=== PATIENT | female | born 1990 | race Caucasian/White ===

== ENCOUNTER → 2016-08-27 | Outpatient (CLI) | payer OTHER ==
[~2016-08-27] MED LIST: ACET-1311 PO; CEPH500C2 PO; MTR600X PO; ONDA4TAB10 SL; OXYC-57 PO; PRENTAB26 PO; SULF800T23 PO
[2016-08-27 13:14] LABS: HEMATOCRIT 33.2 % (37-47)
[2016-08-27 14:42] LABS: GTGD 50 Grams
== END | disposition home or self-care (01) ==
LOC: C.LAB1850 11:53
PROVIDERS: ATTEND Obstetrics & Gynecology
DX: Z34.83 Encounter for supervision of other normal pregnancy, third trimester (principal)

== ENCOUNTER → 2016-08-27 | Outpatient (CLI) | payer OTHER ==
[2016-08-27 15:47] LABS: URINE APPEARANCE CLEAR (CLEAR); URINE BILIRUBIN NEG (NEG); URINE COLOR YELLOW; URINE EPITHELIAL CELL AUTO >30 /lpf (0-5); URINE NITRITE NEG (NEG); URINE PH 7.5 (4.5-7.5); URINE SPECIFIC GRAVITY 1.009 (1.000-1.030); UROBILINOGEN NEG (NEG)
[2016-08-27 15:49] LABS: REVIEW REQ? NO
[2016-08-27 15:50] LABS: MANUAL MICROSCOPIC REQUIRED? NO
== END | disposition home or self-care (01) ==
LOC: C.LABSPEC 14:38
PROVIDERS: ATTEND Obstetrics & Gynecology
DX: Z34.83 Encounter for supervision of other normal pregnancy, third trimester (principal)

== ENCOUNTER → 2016-10-28 | Outpatient (CLI) | payer OTHER | END | disposition home or self-care (01) | LOC: C.LABSPEC 13:29 | PROVIDERS: ATTEND Obstetrics & Gynecology | DX: Z34.83 Encounter for supervision of other normal pregnancy, third trimester (principal) ==

== ENCOUNTER 2016-11-07 20:20 | Outpatient (CLI) | payer OTHER ==
[~2016-11-07] VITALS: Ht 160 cm; Wt 96.2 kg
[~2016-11-07 20:20] MED LIST changes: -ACET-1311 PO; -CEPH500C2 PO; -MTR600X PO; -OXYC-57 PO; -SULF800T23 PO
[2016-11-07 20:58] VITALS: Ht 160 cm; Wt 96.2 kg
--- NOTE | 2016-11-07 21:31 | History & Physical Bridge Note ---
H&P Re-Evaluation Bridge Note: I have examined the patient, reviewed the History & Physical and in the interval since the performance of the History & Physical I have noted the following changes of clinical significance: No changes noted
[2016-11-16] MEDS ORDERED: ACET-1311 PO (10:34)
== END 2016-11-07 21:45 | disposition home or self-care (01) ==
LOC: C.OPB 20:20 → C.LD 20:20 → C.OPB 21:45
PROVIDERS: ATTEND Obstetrics & Gynecology
DX: O62.9 Abnormality of forces of labor, unspecified (principal); Z3A.37 37 weeks gestation of pregnancy

== ENCOUNTER 2016-11-22 05:37 | Inpatient (IN) | payer OTHER ==
--- NOTE | 2016-11-16 10:49 | PAT Medication Instructions ---
Service Date Nov 16, 2016. Current Home Medication List Acetaminophen (Tylenol), 325 MG PO PRN Multivit/Min/Iron/Fol Ac/Pren ( Vitamin), 1 TAB PO QAM Medication Instructions For Your Scheduled Surgery - Hold the following medications the morning of surgery: Multivit/Min/Iron/Fol Ac/Pren ( Vitamin), 1 TAB PO QAM - Take the following medications the morning of surgery with a sip of water OTHERWISE NOTHING TO EAT OR DRINK AFTER MIDNIGHT: Acetaminophen (Tylenol), 325 MG PO PRN (may take if needed up to 4 hours prior to surgery) If you have any questions please call us at [phone] or [phone] or [phone]
[2016-11-16 11:31] LABS: BASO % 0.1 %; BASO ABS # 0.01 K/uL (0-0.2); EOS % 0.9 %; HEMATOCRIT 32.1 % (37-47); IG% 0.5 %; LYMPH % 15.5 %; LYMPH ABS # 1.18 K/uL (1.2-3.4); MEAN CELL VOLUME 74.1 fL (80-100); MEAN CORPUSCULAR HEMOGLOBIN 23.1 pg (25-34); MEAN CORPUSCULAR HGB CONC 31.2 g/dl (32-36); MEAN PLATELET VOLUME 11.3 fL (7.4-10.4); MONO % 6.7 %; NEUT % 76.3 %; PLATELET COUNT 175 K/uL (130-400); RED BLOOD COUNT 4.33 M/uL (4.2-5.4)
[2016-11-16 11:35] LABS: URINE APPEARANCE CLEAR (CLEAR); URINE BILIRUBIN NEG (NEG); URINE COLOR YELLOW; URINE NITRITE NEG (NEG); URINE SPECIFIC GRAVITY 1.011 (1.000-1.030); UROBILINOGEN NEG (NEG)
[2016-11-16 11:38] LABS: MANUAL MICROSCOPIC REQUIRED? NO; REVIEW REQ? NO
[2016-11-16 14:23] LABS: COMPLETE YES; MICROCYTOSIS PRESENT
[2016-11-22] VITALS (13 sets, daily range): BP systolic 106–120; BP diastolic 59–72; PULSE 66–101; TEMP 36.4–37; O2SAT 96–100; Ht 160 cm; Wt 98.0 kg
[~2016-11-22] VITALS: Ht 160 cm; Wt 98.0 kg
[~2016-11-22 05:37] MED LIST changes: +ACET-1311 PO; -ONDA4TAB10 SL
[2016-11-22] MEDS ORDERED: LACTATED RINGER'S 1000ML 1,000 ML IV ONE (05:39)
[2016-11-22] MEDS ORDERED: CITRIC ACID/SODIUM CITRATE 15 ML UDC PO SCH (06:00)
[2016-11-22] MEDS ORDERED: CEFAZOLIN IV 2,000 MG in DEXTROSE 5% 50ML IV SCH (06:00)
[2016-11-22] MEDS ORDERED: LACTATED RINGER'S 1000ML 1,000 ML IV SCH ×2 (06:00→07:19)
[2016-11-22 06:35] LABS: HEMATOCRIT 33.5 % (37-47); MEAN CELL VOLUME 72.7 fL (80-100); MEAN CORPUSCULAR HEMOGLOBIN 22.6 pg (25-34); MEAN PLATELET VOLUME 10.6 fL (7.4-10.4); PLATELET COUNT 187 K/uL (130-400); RED BLOOD COUNT 4.61 M/uL (4.2-5.4); WHITE BLOOD COUNT 8.42 K/uL (4.8-10.8)
[2016-11-22 06:36] LABS: BASO % 0.2 %; BASO ABS # 0.02 K/uL (0-0.2); COMPLETE YES; EOS % 0.5 %; IG% 0.5 %; LYMPH % 21.3 %; LYMPH ABS # 1.79 K/uL (1.2-3.4); MONO % 9.4 %; NEUT % 68.1 %; OVALOCYTES 1+; TEAR DROP CELLS OCCASIONAL
[2016-11-22] MEDS ORDERED: MoRPHine SULFATE PF 1 MG/ML 10 ML AMP/VIAL ONE (06:59)
[2016-11-22] MEDS ORDERED: ATROPINE SULFATE 0.4 MG/ML 1 ML VIAL ONE (07:18)
[2016-11-22] MEDS ORDERED: OXYTOCIN INJ 30 UNITS in LACTATED RINGER'S 1000ML 1,000 ML IV SCH (07:19)
--- NOTE | 2016-11-22 07:27 | HISTORY & PHYSICAL EXAMINATION ---
DATE OF ADMISSION: 11/22/2016 PREOPERATIVE HISTORY AND PHYSICAL HISTORY OF PRESENT ILLNESS: This is a 26-year-old G3, P1-0-1-1 with a bernstein intrauterine at term and a history of a prior section. She presents for planned repeat . PAST MEDICAL HISTORY: Anxiety and depression without current medications, chickenpox vaccination and a history of ovarian cysts. PAST SURGICAL HISTORY: section in 2010 for failure to progress and wisdom teeth removal and eye surgery. OBSTETRIC HISTORY: 2016 - first trimester SAB; 2010 - 41 weeks primary section for an 8 pound 14 ounce female due to failure to progress. SOCIAL HISTORY: Negative x3, single female with a monogamous male partner. PHYSICAL EXAMINATION: VITAL SIGNS: Most recent weight 216 pounds, blood pressure 128/60. PELVIS: heart tones appropriate for gestational age and category 1 here on labor and delivery. TOCO is quiet. Cervical and vaginal exam most recently closed, long and high. GENERALLY: Alert and in no acute distress. HEART: Shows regular rate and rhythm. LUNGS: Clear to auscultation bilaterally. ABDOMEN: Gravid and nontender. EXTREMITIES: Without significant edema. ASSESSMENT AND PLAN: A 26-year-old 3, para 1-0-1-1 with a bernstein at term for repeat section. She declines trial of labor after section. Risks and benefits have been discussed with the patient. She is interested in proceeding and we will take her to surgery at this time. RINA
[2016-11-22] MEDS ORDERED: NALOXONE HCL INJ 1 MG in SODIUM CHLORIDE 0.9% 1000ML 1,000 ML IV PRN ×4 (07:28)
[2016-11-22] MEDS ORDERED: NALOXONE HCL INJ 0.08 MG in SYRINGE 1.8 ML IV PRN (07:28)
[2016-11-22] MEDS ORDERED: SODIUM CHLORIDE 0.9% 1000ML 1,000 ML IV PRN (07:28)
[2016-11-22] MEDS ORDERED: LACTATED RINGER'S 1000ML 500 ML IV PRN (07:28)
[2016-11-22] MEDS ORDERED: PHENYLEPHRINE 100MCG/ML 5ML SYR IV PRN (07:30)
[2016-11-22] MEDS ORDERED: MEPERIDINE HCL 25 MG/ML CARP IV PRN (07:30)
[2016-11-22] MEDS ORDERED: ATROPINE SULFATE 0.1 MG/ML 5ML SYR IV PRN (07:30)
[2016-11-22] MEDS ORDERED: NO NARCOTICS OR SEDATIVES SCH (07:30)
[2016-11-22] MEDS ORDERED: SUPERCREAM 0.870 % 15GM JAR EXT PRN (07:30)
[2016-11-22] MEDS ORDERED: ONDANSETRON INJ 2 MG/ML 2 ML VIAL IV PRN ×2 (07:30)
[2016-11-22] MEDS ORDERED: KETOROLAC TROMETHAMINE 30 MG/ML VIAL IV. PRN ×2 (07:30)
[2016-11-22] MEDS ORDERED: BENZOCAINE 20% AER SPR 82.5 GM CAN EXT PRN (07:30)
[2016-11-22] MEDS ORDERED: LANOLIN OINT EXT PRN ×2 (07:30)
[2016-11-22] MEDS ORDERED: EpHEDrine SULFATE INJ 50 MG/ML AMP IV PRN ×2 (07:30)
[2016-11-22] MEDS ORDERED: MoRPHine SULFATE PF 1 MG/ML 10 ML AMP/VIAL EPI PRN (07:30)
[2016-11-22] MEDS ORDERED: NALOXONE HCL 0.4 MG/1 ML VIAL/CARP IV PRN (07:30)
[2016-11-22] MEDS ORDERED: PROMETHAZINE HCL INJ 12.5 MG in SODIUM CHLORIDE 0.9% 50ML 50 ML IV PRN (07:30)
[2016-11-22] MEDS ORDERED: HYDROCORTISONE ACETATE 25 MG SUPP PR PRN (07:30)
[2016-11-22] MEDS ORDERED: PROMETHAZINE HCL INJ 25 MG in SODIUM CHLORIDE 0.9% 50ML 50 ML IV PRN (07:30)
[2016-11-22] MEDS ORDERED: DIPHTHERIA/TETANUS/PERTUSSIS 0.5 ML SYR/VIAL IM. ONE (07:30)
[2016-11-22] MEDS: DOCUSATE SODIUM 100 MG CAP PO SCH ×2 (08:00→20:13)
[2016-11-22] MEDS: PRENATAL VITAMIN TAB PO SCH (08:00)
[2016-11-22] MEDS ORDERED: PHENYLEPHRINE 100MCG/ML 5ML SYR ONE (08:25)
[2016-11-22] MEDS ORDERED: PROPOFOL IV EMULSION 10 MG/ML 20 ML VIAL IV ONE (08:25)
[2016-11-22] MEDS ORDERED: OXYTOCIN INJ 10 UNITS/ML VIAL ONE (08:25)
[2016-11-22] MEDS ORDERED: ONDANSETRON INJ 2 MG/ML 2 ML VIAL ONE (08:25)
[2016-11-22] MEDS ORDERED: EpHEDrine SULFATE 50MG/5ML SYR ONE (08:25)
[2016-11-22] MEDS ORDERED: METOCLOPRAMIDE HCL INJ 5 MG/ML 2 ML VIAL ONE (08:25)
--- NOTE | 2016-11-22 08:38 | [facility] Post Operative Brief Note ---
Immediate Operative Summary Operative Date November 22, 2016. Pre-Operative Diagnosis History of caesarean section. Declines . Post-Operative Diagnosis Same as above Procedure(s) Performed Repeat caesarean section. Delivery of live female child at 0802. Surgeon Dr. Johnson Ship Pilot Dispatcher Surgeon(s) Dr. Mcnulty Estimated Blood Loss 600cc Findings Delivered a viable female infant, APGARS 9,9. Weight 8 lbs 3.8oz. Normal uterus , fallopian tubes and ovaries bilaterally Specimens A: Placenta-hold Drains forbes to gravity Anesthesia spinal Complication(s) None Disposition L&D
--- NOTE | 2016-11-22 08:43 | [facility] Post Operative Brief Note ---
Immediate Operative Summary Operative Date November 22, 2016. Pre-Operative Diagnosis History of caesarean section. Declines . Post-Operative Diagnosis Same as above Procedure(s) Performed Repeat caesarean section. Delivery of live female child at 0802. Surgeon Dr. Johnson Language Translator Surgeon(s) Dr. Mcnulty Estimated Blood Loss 600cc Findings Normal tubes and ovaries. Infant in vertex presentation. Significant scar tissue in the subcutaneous layers and fascia. Specimens A: Placenta-hold Complication(s) None Disposition L&D
[2016-11-22] MEDS: SIMETHICONE 80 MG CHEW PO SCH ×4 (09:00→20:13)
--- NOTE | 2016-11-22 09:10 | OPERATIVE REPORT ---
DATE OF OPERATION: 11/22/2016 PREOPERATIVE DIAGNOSIS: History of and declines vaginal after section. POSTOPERATIVE DIAGNOSIS: Same. PROCEDURE: Repeat section with delivery of live female at 0802. SURGEON: Dr. Johnson. HORSE SHOW JUDGE: PGY1. ESTIMATED BLOOD LOSS: 600. FINDINGS: Normal tubes and ovaries. in vertex presentation. There was significant scar tissue encountered throughout the subcutaneous layers and fascia. SPECIMENS: Placenta for hold. COMPLICATIONS: None. DISPOSITION: Stable in labor and delivery. DESCRIPTION: Makayla is a 26-year-old G3, P1-0-1-1, who presented with a bernstein at term for a repeat section. She was placed on the table in the supine position with a leftward tilt, prepped and draped in standard sterile fashion, and a hard timeout was taken prior to proceeding. A Pfannenstiel incision was created through the prior scar and carried down through the subcutaneous layers. Significant scar tissue was encountered in the subcutaneous tissue and the fascia as well. Once the fascia was incised, it was elevated and sharply and bluntly dissected off the underlying rectus. The midline of the rectus needed to be dissected using sharp scissors with careful layer by layer dissection through significant scar tissue. Once the peritoneum was encountered, it was bluntly entered, and from that point, no further scarring or adhesions were encountered. The bladder blade was placed, a bladder flap was created, and the lower uterine segment was incised in a transverse manner with final entry being made in a blunt manner for clear amniotic fluid. The head was elevated to the hysterotomy, and with fundal pressure, an attempt was made to deliver the . Unfortunately, this was not initially successful and a Kiwi cup was then applied to the vertex. This was used with another attempt of fundal pressure to deliver the infant's head. The shoulders came out without any difficulty and the remainder of the followed. The cord was doubly clamped and cut, and the was then taken to the warmer for pediatric attention. The placenta was manually extracted. The uterus was exteriorized and cleared off all clot and debris using a damp lap sponge. The ovaries and tubes were seen to be normal bilaterally. The lower transverse incision was closed in the usual manner with 2 layers of 0 Vicryl suture in a running locked manner and an imbricating overlayer. Tone was good and the uterus was then reapproximated to the abdomen. On inspection, the hysterotomy was noted to have a small area of bleeding which was addressed using a [id number] Vicryl suture and hemostasis was thus achieved. The gutters were cleared off all clot and debris. The rectus were allowed to reapproximate naturally. Fascia was closed from each angle toward the center using #1 Vicryl suture in a running nonlocked manner. The subcutaneous tissue was copiously irrigated and reapproximated using 3-0 chromic. The skin was closed using 4-0 Monocryl in a running subcuticular manner and a Dermabond dressing was then applied. The patient was transferred in stable condition to the recovery room with the Brannon draining clear yellow urine. I attest to the content of the Intraoperative Record and any orders documented therein. Any exceptio ns are noted below.
[2016-11-22] MEDS: DiphenhydrAMINE HCL 50 MG/ML VIAL IV PRN ×2 (09:55→19:03)
--- NOTE | 2016-11-22 15:03 | Anesthesiology Progress Note ---
Anesthesia Post Op Note Date & Time November 22, 2016 at 15:04 Vital Signs Vital Signs Past 12 Hours Date Time Temp Pulse Resp B/P Pulse Ox O2 Delivery O2 Flow Rate FiO2 11/22/16 13:00 20 100 11/22/16 13:00 66 20 108/66 100 Room Air 11/22/16 11:00 99 Room Air 11/22/16 11:00 99 Room Air 11/22/16 11:00 36.4 86 24 106/68 99 Room Air 11/22/16 11:00 24 99 Notes Mental Status: alert / awake / arousable, participated in evaluation Pt Amnestic to Procedure: Yes Nausea / Vomiting: adequately controlled Pain: adequately controlled Airway Patency, RR, SpO2: stable & adequate BP & HR: stable & adequate Hydration State: stable & adequate Anesthetic Complications: no major complications apparent
[2016-11-22] MEDS: NALBUPHINE HCL INJ 10 MG/ML AMP IV PRN ×2 (15:27→22:16)
[2016-11-22] MEDS: MEPERIDINE HCL 25 MG/ML CARP IV PRN ×2 (16:24→16:48)
[2016-11-23] VITALS: O2SAT 98
[2016-11-23] MEDS ORDERED: DC INTRASPINAL MORPHINE SCH
[2016-11-23] MEDS ORDERED: PROMETHAZINE HCL INJ 25 MG in SODIUM CHLORIDE 0.9% 50ML 50 ML IV PRN (00:01)
[2016-11-23] MEDS ORDERED: DiphenhydrAMINE HCL 50 MG/ML VIAL IV PRN (00:01)
[2016-11-23] MEDS ORDERED: OXYCODONE/ACETAMINOPHEN 5-325 TAB PO PRN (00:01)
[2016-11-23] MEDS ORDERED: KETOROLAC TROMETHAMINE 30 MG/ML VIAL IV. PRN (00:01)
[2016-11-23] MEDS ORDERED: MEPERIDINE HCL 50 MG/ML CARP IV PRN ×2 (00:01)
[2016-11-23] MEDS ORDERED: ONDANSETRON INJ 2 MG/ML 2 ML VIAL IV PRN (00:01)
[2016-11-23 00:20] VITALS: BP 108/58; PULSE 80; TEMP 37; O2SAT 96; O2SAT 98
[2016-11-23 04:00] VITALS: BP 116/74; PULSE 103; TEMP 37
[2016-11-23 06:34] LABS: BASO % 0.3 %; BASO ABS # 0.02 K/uL (0-0.2); EOS % 0.6 %; IG% 0.4 %; LYMPH ABS # 1.28 K/uL (1.2-3.4); MEAN CELL VOLUME 73.3 fL (80-100); MEAN CORPUSCULAR HEMOGLOBIN 22.9 pg (25-34); MEAN CORPUSCULAR HGB CONC 31.2 g/dl (32-36); MEAN PLATELET VOLUME 10.7 fL (7.4-10.4); MONO % 7.4 %; NEUT % 75.3 %; PLATELET COUNT 133 K/uL (130-400); RED BLOOD COUNT 3.41 M/uL (4.2-5.4)
--- NOTE | 2016-11-23 06:36 | Progress Note ---
Subjective November 23, 2016. Subjective conversation w/ patient, physical exam, lab review Ambulation: ambulating normally Voiding: no voiding problems Passing Gas: Yes Diet Tolerance: Regular Diet Lochia: Moderate Pain: improves with meds Comment: Patient was seen at the bedside. No acute event overnight. Review of Systems Constitutional: No fever Respiratory: No cough, No shortness of breath Cardiac: No chest pain Breast: No breast lump Abdomen: No nausea, No pain, No vomiting Female : No dysuria, No urinary frequency Denies headache Objective Vital Signs Date Time Temp Pulse Resp B/P Pulse Ox O2 Delivery O2 Flow Rate FiO2 11/23/16 04:00 37.0 103 18 116/74 Room Air 11/23/16 00:20 96 Room Air 11/23/16 00:20 37.0 80 17 108/58 98 Room Air 11/23/16 00:00 18 98 11/22/16 23:00 18 98 11/22/16 22:00 18 98 11/22/16 21:00 18 96 11/22/16 20:15 37.0 101 18 120/72 96 Room Air 11/22/16 20:00 20 99 11/22/16 19:00 22 99 11/22/16 18:00 20 99 11/22/16 17:00 20 99 11/22/16 16:00 20 98 11/22/16 15:15 99 11/22/16 15:15 36.7 68 20 106/59 99 Room Air 11/22/16 14:00 20 98 11/22/16 13:00 20 100 11/22/16 13:00 66 20 108/66 100 Room Air 11/22/16 11:00 99 Room Air 11/22/16 11:00 99 Room Air 11/22/16 11:00 36.4 86 24 106/68 99 Room Air 11/22/16 11:00 24 99 Physical Exam General Appearance: WELL-APPEARING, WD/WN, NO APPARENT DISTRESS Respiratory/Chest: chest non-tender, lungs clear, normal breath sounds Cardiovascular: regular rate, rhythm Abdomen: normal bowel sounds, non tender, soft Fundus: Firm, Relation to Umbilicus (1 cm below) Incision Description: Clean, Dry & Intact Extremities: non-tender, no calf tenderness, + pedal edema (trace of edema on right leg) Laboratory Results Last 24 Hours Test 11/23/16 06:19 Medications Current Inpatient Medications Medications (Trade) Dose Ordered Sig/Ramone Route Start Time Stop Time Status Last Admin Dose Admin Lactated Ringer's (Lr 1000ml) 1,000 ml @ 125 mls/hr Q8H IV 11/22/16 07:19 12/22/16 07:18 11/22/16 19:00 125 MLS/HR Ketorolac Tromethamine (Toradol Inj) 30 mg Q6H PRN IV. 11/23/16 00:01 11/27/16 07:29 11/23/16 00:22 30 MG Meperidine HCl (Demerol Inj) 50 mg Q4H PRN IV 11/23/16 00:01 12/07/16 00:00 Meperidine HCl (Demerol Inj) 75 mg Q4H PRN IV 11/23/16 00:01 12/07/16 00:00 Oxycodone/ Acetaminophen (Percocet 5-325mg Tab) 1 tab Q4H PRN PO 11/23/16 00:01 12/07/16 00:00 Oxycodone/ Acetaminophen (Percocet 5-325mg Tab) 2 tab Q4H PRN PO 11/23/16 00:01 12/07/16 00:00 Ibuprofen 600 mg 600 mg Q4H PRN PO 11/22/16 07:30 12/22/16 07:29 Promethazine HCl/ Sodium Chloride (Phenergan Inj/ Nss 50ml) 51 ml @ 204 mls/hr Q4H PRN IV 11/23/16 00:01 12/23/16 00:00 Ondansetron HCl (Zofran Inj) 4 mg Q4H PRN IV 11/23/16 00:01 12/23/16 00:00 Prenat Multivit/ Parts Puller/Iron/Folic Ac ( Vitamin Tab) 1 tab DAILY PO 11/22/16 08:00 12/22/16 07:59 Docusate Sodium (coLACE CAP) 100 mg BID PO 11/22/16 08:00 12/22/16 07:59 11/22/16 20:13 100 MG Cocaine HCl (Supercream 0.870% Cr) BID PRN EXT 11/22/16 07:30 12/06/16 07:29 Lanolin (Lanolin Oint) PRN PRN EXT 11/22/16 07:30 12/22/16 07:29 Hydrocortisone Acetate (Anusol Hc Supp) 25 mg BID PRN MS 11/22/16 07:30 12/22/16 07:29 Benzocaine (Dermoplast Aero Spr) 1 appln PRN PRN EXT 11/22/16 07:30 12/22/16 07:29 Simethicone (Mylicon Chew Tab) 80 mg QID PO 11/22/16 09:00 12/22/16 08:59 11/22/16 20:13 80 MG Diphenhydramine HCl (Benadryl Cap) 25 mg QID PRN PO 11/23/16 00:01 12/23/16 00:00 Diphenhydramine HCl (Benadryl Inj) 25 mg QID PRN IV 11/23/16 00:01 12/23/16 00:00 11/23/16 02:06 25 MG Assessment and Plan Problem List Medical Problems: (1) Carpal Tunnel Syndrome Status: Chronic (2) Nausea, vomiting and diarrhea Status: Acute Post-Op Day#: 1 Continue Routine Care: A/P: This is a 26 y/o female, , s/p repeat . She is ambulating and clinically stable. Plan: - Vitals signs are reviewed and WNL (Tmax 37 ) - Last Hgb is 10.4 - Blood type B+, GBS neg, Rubella Immune - Routine care - Encourage ambulation, monitor and control pain with medication as needed , continue with regular diet as tolerated and monitor lochia - Stool softeners and sitz bath recommended - Encourage breast feeding and educate about breast feeding Resident Physician Supervision Note: I was present with Dr. Mcnulty during the history and exam. I discussed the case with the resident and agree with the findings and plan as documented in the note. Any exceptions or clarifications are listed here: Doing well. voiding, will ambul more today. pain meds po for pain control. incision looks good. routine care. Documented By: Arleen Sanchez
[2016-11-23 07:21] LABS: COMPLETE YES; POIKILOCYTOSIS PRESENT
[2016-11-23] MEDS: PRENATAL VITAMIN TAB PO SCH (08:41)
[2016-11-23] MEDS: DOCUSATE SODIUM 100 MG CAP PO SCH ×2 (08:41→19:43)
[2016-11-23] MEDS: IBUPROFEN 600 MG TAB PO PRN ×3 (08:41→19:43)
[2016-11-23] MEDS: SIMETHICONE 80 MG CHEW PO SCH ×4 (08:41→19:43)
[2016-11-23] MEDS: OXYCODONE/ACETAMINOPHEN 5-325 TAB PO PRN ×3 (08:42→21:36)
[2016-11-23 08:44] VITALS: BP 118/70; PULSE 101; TEMP 36.9; O2SAT 100
--- NOTE | 2016-11-23 09:55 | Anesthesiology Progress Note ---
Anesthesia Post Op Note Date & Time November 23, 2016 at 09:55 Vital Signs Pain Intensity: 5.0 Vital Signs Past 12 Hours Date Time Temp Pulse Resp B/P Pulse Ox O2 Delivery O2 Flow Rate FiO2 11/23/16 04:00 37.0 103 18 116/74 Room Air 11/23/16 00:20 96 Room Air 11/23/16 00:20 37.0 80 17 108/58 98 Room Air 11/23/16 00:00 18 98 11/22/16 23:00 18 98 11/22/16 22:00 18 98 Notes Mental Status: alert / awake / arousable, participated in evaluation Pt Amnestic to Procedure: Yes Nausea / Vomiting: adequately controlled Pain: adequately controlled Airway Patency, RR, SpO2: stable & adequate BP & HR: stable & adequate Hydration State: stable & adequate Neuraxial Anesthesia: sensory block resolved Anesthetic Complications: no major complications apparent
[2016-11-23 15:05] VITALS: BP 118/75; PULSE 84; TEMP 37.3; O2SAT 99
[2016-11-23 23:40] VITALS: BP 115/69; PULSE 75; TEMP 36.8; O2SAT 99
[2016-11-24] MEDS: IBUPROFEN 600 MG TAB PO PRN (02:49)
[2016-11-24] MEDS: OXYCODONE/ACETAMINOPHEN 5-325 TAB PO PRN (02:50)
--- NOTE | 2016-11-24 07:17 | Discharge Instructions ---
Discharge Instructions Date of Service November 23, 2016. Admission Reason for Admission: Previous Section Discharge Discharge Diagnosis / Problem: s/p Discharge Goals Goal(s): Routine recovery after Medications Continue Dispensed Medications: supercream, dermaplast, tucks, lansinoh Activity Recommendations Activity Limitations: as noted below . Instructions / Follow-Up Instructions / Follow-Up ACTIVITY RECOMMENDATIONS: * Gradual return to full activity over the next 2-3 weeks. * No lifting - nothing heavier than baby over the next 2-3 weeks. * Do not engage in vigorous exercise, sexual activity or sports until cleared by your physician. * Do not drive or operate any motorized equipment until cleared by your physician. * You may shower/bathe daily. MEDICATIONS: For discomfort or pain, you may use Acetaminophen (Tylenol), Ibuprofen (Advil), or Naproxen (Aleve) following the package directions. For constipation you may use Colace following the package directions. BREAST CARE: If you are not breast feeding: * Wear a supportive bra 24 hours a day for one to two weeks. * Avoid stimulating your breasts and nipples as much as possible during the first few weeks after delivery. * When taking a shower, have the warm water hit your back, not breasts. * When your breasts feel full, apply ice packs. Usually three to four times a day helps ease the discomfort. * Take a mild pain medication (Tylenol / Motrin) when you are uncomfortable. If breast feeding: * Use breast milk to lubricate nipples. Lansinoh cream may be used for sore nipples. You do not need to remove cream prior to breast feeding. If using a different brand of cream, check the label for directions regarding removal of cream prior to nursing. * Wear a supportive bra. * If having problems with breasts or breast feeding, call a method consultant or your health care provider. SPECIAL CARE INSTRUCTIONS: When you are discharged from the hospital, it is important for you to follow the instructions listed below: * During the first week at home, you should be able to care for yourself and your baby. In addition, the usual light household activities are encouraged. * Limit your activities to the way you feel. Do not try to clean the house or move furniture. Be sensible. * If you actively engage in sports and have done so up until the time of your delivery, you may resume these activities as soon as you feel able. This may take up to one month or even longer. Use good judgment. * Continue to take your vitamins for at least six weeks after the of your baby. * Your diet need not be limited unless you were on a special diet before your delivery. Breast-feeding mothers need around 2500 calories per day and at least 64-80 ounces of fluid per day (8 to 10 glasses). * You should eat foods from the four major food groups. Crash diets or fad diets are to be avoided. Eating lean meats, fresh fruits and vegetables, low-fat dairy products, high fiber foods and a regular exercise program, will help you get back to your pre- weight without putting your health at risk. * Constipation is sometimes a problem after delivery. Take a mild laxative as needed. If breast feeding, Milk of Magnesia is acceptable to use. You may use a suppository or Fleets enema. * A daily shower or tub bath is suggested. Wash incision daily with warm soapy water and pat dry. It doesn't need to be covered unless drainage is present. * A bloody vaginal discharge will usually continue until around four weeks . A small amount of bleeding may continue for as long as six weeks. Vaginal discharge changes from the bright red bleeding after delivery to pink then brownish and finally yellowish-pink before becoming white and disappearing. * Bleeding may increase with activity. Your first period may come in 4-8 weeks. If you are breast feeding, your period may be delayed even longer. * [place] (sex) can begin whenever both you and your partner feel comfortable and do not have any form of genital infection. It is recommended that you wait at least six weeks for internal and external healing to occur. If you have questions, please talk to your health care practitioner. A condom should be used to prevent infection and . * Foreplay, gentle intercourse and lubrication is very important the first several times to prevent pain. A water-based lubricant such as K-Y jelly or Astroglide may be used. * If you have RH negative blood and your baby is RH positive, you will receive RHOGAM by injection prior to discharge. The nurse will give you a card to keep with you that has the date and place that you received RHOGAM after delivery. * During your care, you had a Rubella screen done to check for the presence of rubella antibodies in your blood. If your test was negative, you will receive a Rubella vaccine prior to discharge. This vaccine may cause a fever, soreness at the injection site and flu-like symptoms. If these symptoms persist, notify your health care practitioner. is not advised for one month after a Rubella vaccine. * Verbalizes understanding of car seat law as reviewed with patient nursing. * Car Seat hand-out given and reviewed with patient by nursing. * Shaken baby information reviewed with patient by nursing. Call you doctor if: * Heavy bleeding (saturating several pads an hour) or passing clots the size of your fist. * A fever >101 degrees F (38.3 degrees C) on two occasions four hours apart and /or chills. * Unusual pain in the pelvic or vaginal areas. * Call the doctor for any increased redness, drainage or swelling around the incision and any pain unrelieved by prescribed pain medication. * "Baby Blues" lasting longer than two weeks. If you have any questions or concerns, call your health care practitioner at . FOLLOW UP VISIT: * Please call the office at to schedule a 6 week examination. It is important you keep this appointment. It is important for you to make arrangements for either yearly or twice yearly check-ups thereafter. Current Hospital Diet Patient's current hospital diet: Regular OB Diet Discharge Diet Recommended Diet: Regular Diet Procedures Procedures Performed: Repeat caesarean section. Delivery of live female child at 0802. Pending Studies Studies pending at discharge: no Medical Emergencies . Who to Call and When: Medical Emergencies: If at any time you feel your situation is an emergency, please call 911 immediately. . Non-Emergent Contact Non-Emergency issues call your: Vascular Manager Call Non-Emergent contact if: you have a fever, temperature is above 101 . . "Provider Documentation" section prepared by Jayy Mcnulty. . VTE Core Measure Inpt VTE Proph given/why not?: Treatment not indicated
--- NOTE | 2016-11-24 07:19 | Progress Note ---
Subjective November 24, 2016. Subjective conversation w/ patient, physical exam, lab review Ambulation: ambulating normally Voiding: no voiding problems Passing Gas: Yes Diet Tolerance: Regular Diet Lochia: Small Feeding Type: Breast Feeding Pain: denies pain, improves with med Comment: Patient was seen at the bedside. No acute event overnight. Review of Systems Constitutional: No fever Respiratory: No shortness of breath Cardiac: No chest pain Breast: No breast lump Abdomen: No nausea, No pain, No vomiting Female : No dysuria, No urinary frequency Denies headache Objective Vital Signs Date Time Temp Pulse Resp B/P Pulse Ox O2 Delivery O2 Flow Rate FiO2 11/23/16 23:40 36.8 75 18 115/69 Room Air 11/23/16 23:40 99 Room Air 11/23/16 15:05 99 Room Air 11/23/16 15:05 37.3 84 18 118/75 99 Room Air 11/23/16 08:44 36.9 101 18 118/70 100 Room Air 11/23/16 08:44 100 Room Air Physical Exam General Appearance: WELL-APPEARING, WD/WN, NO APPARENT DISTRESS Respiratory/Chest: chest non-tender, lungs clear, normal breath sounds, no respiratory distress Cardiovascular: regular rate, rhythm Abdomen: normal bowel sounds, non tender, soft Fundus: Firm, Relation to Umbilicus (1-2cm below) Incision Description: Clean, Dry & Intact Extremities: non-tender, no pedal edema, no calf tenderness Medications Current Inpatient Medications Medications (Trade) Dose Ordered Sig/Ramone Route Start Time Stop Time Status Last Admin Dose Admin Lactated Ringer's (Lr 1000ml) 1,000 ml @ 125 mls/hr Q8H IV 11/22/16 07:19 12/22/16 07:18 11/22/16 19:00 125 MLS/HR Ketorolac Tromethamine (Toradol Inj) 30 mg Q6H PRN IV. 11/23/16 00:01 11/27/16 07:29 11/23/16 00:22 30 MG Meperidine HCl (Demerol Inj) 50 mg Q4H PRN IV 11/23/16 00:01 12/07/16 00:00 Meperidine HCl (Demerol Inj) 75 mg Q4H PRN IV 11/23/16 00:01 12/07/16 00:00 Oxycodone/ Acetaminophen (Percocet 5-325mg Tab) 1 tab Q4H PRN PO 11/23/16 00:01 12/07/16 00:00 11/24/16 02:50 1 TAB Oxycodone/ Acetaminophen (Percocet 5-325mg Tab) 2 tab Q4H PRN PO 11/23/16 00:01 12/07/16 00:00 Ibuprofen 600 mg 600 mg Q4H PRN PO 11/22/16 07:30 12/22/16 07:29 11/24/16 02:49 600 MG Promethazine HCl/ Sodium Chloride (Phenergan Inj/ Nss 50ml) 51 ml @ 204 mls/hr Q4H PRN IV 11/23/16 00:01 12/23/16 00:00 Ondansetron HCl (Zofran Inj) 4 mg Q4H PRN IV 11/23/16 00:01 12/23/16 00:00 Prenat Multivit/ Eland/Iron/Folic Ac ( Vitamin Tab) 1 tab DAILY PO 11/22/16 08:00 12/22/16 07:59 11/23/16 08:41 1 TAB Docusate Sodium (coLACE CAP) 100 mg BID PO 11/22/16 08:00 12/22/16 07:59 11/23/16 19:43 100 MG Cocaine HCl (Supercream 0.870% Cr) BID PRN EXT 11/22/16 07:30 12/06/16 07:29 Lanolin (Lanolin Oint) PRN PRN EXT 11/22/16 07:30 12/22/16 07:29 Hydrocortisone Acetate (Anusol Hc Supp) 25 mg BID PRN LA 11/22/16 07:30 12/22/16 07:29 Benzocaine (Dermoplast Aero Spr) 1 appln PRN PRN EXT 11/22/16 07:30 12/22/16 07:29 Simethicone (Mylicon Chew Tab) 80 mg QID PO 11/22/16 09:00 12/22/16 08:59 11/23/16 19:43 80 MG Diphenhydramine HCl (Benadryl Cap) 25 mg QID PRN PO 11/23/16 00:01 12/23/16 00:00 Diphenhydramine HCl (Benadryl Inj) 25 mg QID PRN IV 11/23/16 00:01 12/23/16 00:00 11/23/16 02:06 25 MG Assessment and Plan Problem List Medical Problems: (1) Carpal Tunnel Syndrome Status: Chronic (2) Nausea, vomiting and diarrhea Status: Acute Post-Op Day#: 2 Continue Routine Care: Resident Physician Supervision Note: I interviewed and examined the patient. Discussed with Dr. Mcnulty and agree with findings and plan as documented in the note. Any exceptions or clarifications are listed here: [None] Documented By: Lenora Jaimes A/P: This is a 26 y/o female, , s/p . She is ambulating and clinically stable to discharge. - Vital signs are reviewed and WNL (Tmax 37.3 ) - Last Hgb 7.8 - Blood type B+, GBS neg, Rubella Immune - No signs of depression. - Routine care - Discussed resting, feeding, pain control, mastitis, control, follow up in 6 weeks and reasons to call sooner, if necessary. - Continue with pain medication as needed, and continue vitamins. - Encourage breast feeding and educate about breast feeding - Patient understands and keen for home. - Plan to discharge home
[2016-11-24 08:00] VITALS: BP 120/67; PULSE 84; TEMP 36.9; O2SAT 95
[2016-11-24] MEDS ORDERED: MTR600X PO (08:13)
[2016-11-24] MEDS ORDERED: OXYC-57 PO (08:13)
[2016-11-24] MEDS: SIMETHICONE 80 MG CHEW PO SCH (08:37)
[2016-11-24] MEDS: PRENATAL VITAMIN TAB PO SCH (08:37)
[2016-11-24] MEDS: DOCUSATE SODIUM 100 MG CAP PO SCH (08:37)
[2016-11-24 09:50] VITALS: BP_DIAS 67; PULSE 84; TEMP 36.9
--- NOTE | 2016-11-26 14:07 | DISCHARGE SUMMARY ---
COURSE OF CARE: Makayla is a 26-year-old G3, P1 with history of prior section who presented for planned repeat. Her repeat low transverse section was uncomplicated. Please see operative report for details. Her postoperative course was notable for a hemoglobin and nadired at 7.8 from a preop of 10. The patient's vital signs however remained stable and within normal limits. The patient tolerated her blood losses well. Her postop care was smooth and then discharge was accomplished on the morning of 11/24/2016 with medications including 30 tablets of Percocet which were provided to her upon discharge.
== END 2016-11-24 09:50 | disposition home or self-care (01) | DRG 766 ==
LOC: C.LD 05:37 → EDSTATUS 07:30 → C.OBG 11:07
PROVIDERS: ADMIT Obstetrics & Gynecology; ATTEND Obstetrics & Gynecology
PROC: 10D00Z1 Extraction of Products of Conception, Low, Open Approach (ICD-10-PCS; principal; 2016-11-22 07:30)
DX: O34.211 Maternal care for low transverse scar from previous cesarean delivery (principal); N85.8 Other specified noninflammatory disorders of uterus; O99.62 Diseases of the digestive system complicating childbirth; K21.9 Gastro-esophageal reflux disease without esophagitis; O99.214 Obesity complicating childbirth; E66.9 Obesity, unspecified; Z68.38 Body mass index [BMI] 38.0-38.9, adult; Z79.899 Other long term (current) drug therapy; Z37.0 Single live birth; Z3A.39 39 weeks gestation of pregnancy

== ENCOUNTER 2016-12-30 16:28 | Emergency (ER) | payer OTHER ==
[~2016-12-30] VITALS: Ht 167.6 cm; Wt 84.5 kg
[~2016-12-30 16:28] MED LIST changes: -CEPH500C2 PO; -SULF800T23 PO
[2016-12-30 16:31] VITALS: TEMP 36.7; Ht 167.6 cm; Wt 84.5 kg
[2016-12-30] MEDS ORDERED: SODIUM CHLORIDE 0.9% 1000ML 1,000 ML IV STA (17:16)
[2016-12-30] MEDS ORDERED: METOCLOPRAMIDE HCL INJ 5 MG/ML 2 ML VIAL IV STA (17:16)
[2016-12-30 17:23] LABS: BASO % 0.4 %; BASO ABS # 0.02 K/uL (0-0.2); EOS % 1.4 %; HEMATOCRIT 34.8 % (37-47); LYMPH % 25.5 %; LYMPH ABS # 1.41 K/uL (1.2-3.4); MEAN CELL VOLUME 73.1 fL (80-100); MEAN CORPUSCULAR HEMOGLOBIN 22.3 pg (25-34); MEAN CORPUSCULAR HGB CONC 30.5 g/dl (32-36); MEAN PLATELET VOLUME 11.2 fL (7.4-10.4); MONO % 5.4 %; NEUT % 67.3 %; PLATELET COUNT 201 K/uL (130-400); RED BLOOD COUNT 4.76 M/uL (4.2-5.4); WHITE BLOOD COUNT 5.54 K/uL (4.8-10.8)
[2016-12-30] MEDS ORDERED: OPTIRAY 320 IV PRN (17:30)
[2016-12-30 17:32] LABS: URINE APPEARANCE CLEAR (CLEAR); URINE BILIRUBIN NEG (NEG); URINE COLOR YELLOW; URINE NITRITE NEG (NEG); URINE SPECIFIC GRAVITY 1.019 (1.000-1.030); UROBILINOGEN NEG (NEG)
[2016-12-30 17:33] LABS: BUN/CREATININE RATIO 12.3 (10-20); CALCIUM 8.9 mg/dl (8.5-10.1); CREATININE 0.8 mg/dl (0.60-1.20); POTASSIUM 3.9 mmol/L (3.5-5.1)
[2016-12-30 17:46] LABS: MANUAL MICROSCOPIC REQUIRED? NO; REVIEW REQ? NO
[2016-12-30 17:54] LABS: ISTAT CREATININE 0.9 mg/dl (0.6-1.3); ISTAT HEMOGLOBIN 10.2 g/dl (12.0-16.0); ISTAT IONIZED CALCIUM 1.16 mmol/l (1.12-1.32)
--- NOTE | 2016-12-30 18:37 | DIAGNOSTIC IMAGING REPORT ---
ABDOMEN AND PELVIS CT WITH IV CONTRAST CT DOSE: 696.99 mGy.cm HISTORY: Pain Pt c/o LLQ abd pain TECHNIQUE: Multiaxial CT images of the abdomen and pelvis were performed following the use of intravenous contrast. COMPARISON STUDY: 01/14/2015 FINDINGS: Lung bases are clear. Liver spleen and pancreas are uniform. Kidneys are negative for mass or hydronephrosis. Bowel pattern is considered nonobstructive. Perirectal fascial planes are intact. Uterus is anteflexed. There is slight fullness of the left rectus musculature compared to the right. Mild infiltrative changes subcutaneous fat anterior to the left and 2 masses extent right pelvic anterior anterior abdominal wall regions. IMPRESSION: 1. No acute process of the abdomen or pelvis. 2. Mild infiltrative changes subcutaneous fat anterior to the left anterior pelvic wall with similar but less prominent findings seen on the right. 3. This is suggestive of a nonspecific cellulitis. 4. No evidence for drainable abscess or collection. 5. Slight fullness left rectus musculature possibly indicative of a small hematoma and/or contusion. Electronically signed by: Castillo Chauhan M.D. 12/30/2016 6:36 PM Dictated Date/Time: 12/30/2016 6:29 PM
[2016-12-30] MEDS ORDERED: CEFTRIAXONE SOD INJ 1 GM ADDVIAL IV STA (18:40)
[2016-12-30] MEDS ORDERED: SULFAMETHOXAZOLE/TRIMETHOPRIM DS 800/160MG TAB PO STA (18:40)
[2016-12-30] MEDS ORDERED: SULF800T23 PO (18:47)
[2016-12-30] MEDS ORDERED: CEPH500C2 PO (18:47)
[2016-12-30 19:33] LABS: COMPLETE YES; MICROCYTOSIS PRESENT
[2016-12-30 19:37] VITALS: BP 107/58; PULSE 65; O2SAT 98
--- NOTE | 2016-12-30 20:54 | EMERGENCY ROOM VISIT NOTE ---
History Report prepared by Chencho: Mine Mendenhall Under the Supervision of: Dr. Jung Doan M.D. First contact with patient: 17:02 Chief Complaint: ABDOMINAL PAIN Stated Complaint: LEFT LOWER PAIN IN STOMACH Nursing Triage Summary: triage note: pt reports left lower abd pain x 3 days. "i have had dizzy episodes for 3 days too." pt reports on november 22, 2016 - pt denies any complications from . History of Present Illness The patient is a 26 year old female who presents to the Emergency Room with complaints of worsening left abdominal pain starting 3 days ago. The pain is constant and worsens with movement and coughing. The pain has slowly worsened since it started. She notes she has been having dizzy spells for the past couple of days. She denies any vomiting. She is having normal bowel movements. She had a C section 1 month ago. The scars seem to be healing well. She has a history of appendectomy. She still has her gallbladder. Source of History: patient Onset: 3 days ago Position: abdomen (left) Quality: other (pain) Timing: constant, worsening Modifying Factors (Worsening): movement, other (coughing) Associated Symptoms: No vomiting Note: Pt reports dizzy spells. Review of Systems See HPI for pertinent positives & negatives. A total of 10 systems reviewed and were otherwise negative. Past Medical & Surgical Medical Problems: (1) Abdominal pain (2) Abdominal pain (3) Abdominal pain (4) Abdominal pain (5) Carpal Tunnel Syndrome (6) Cellulitis (7) Dehydration (8) Eustachian tube dysfunction (9) Metrorrhagia (10) depression (11) Right upper quadrant abdominal pain (12) Uterine contractions at greater than 20 weeks of gestation (13) Vaginal bleeding in (14) Vaginitis (15) Vasovagal syncope (16) Viral bronchitis Surgical Problems: (1) History of appendectomy (2) History of delivery (3) History of section Family History Alcoholism FH: HTN (hypertension) FH: cancer Social History Smoking Status: Never Smoker Alcohol Use: none Drug Use: none Housing Status: lives with family Occupation Status: employed Current/Historical Medications Scheduled Cephalexin Monohydrate (Keflex), 500 MG PO QID Sulfa/Trimethoprim (Bactrim Ds 800MG/160MG), 1 TAB PO BID Allergies Coded Allergies: No Known Allergies (Unverified , 12/30/16) Physical Exam Vital Signs Date Time Temp Pulse Resp B/P (MAP) Pulse Ox O2 Delivery O2 Flow Rate FiO2 12/30/16 19:37 65 16 107/58 98 12/30/16 18:35 62 16 104/55 98 Room Air 12/30/16 17:37 72 12/30/16 16:55 90 18 113/59 100 Room Air 12/30/16 16:31 36.7 84 18 112/78 99 Room Air Physical Exam GENERAL: Patient is a healthy-appearing well-nourished HEAD: Normocephalic atraumatic EYES: Ocular movements intact pupils equal and react to light OROPHARYNX mucous membranes are moist no exudates present no erythema or edema present NECK: Supple no nuchal rigidity CHEST: Good equal expansion LUNGS: Clear and equal to auscultation CARDIAC: Normal S1 and S2 ABDOMEN: Soft no guarding mildly tender to LLQ surgical incision appears to be healing well no evidence of cellulitis to skin areas. BACK: No CVA tenderness EXTREMITIES: No pain upon palpation normal muscle strength in all groups no clubbing cyanosis or edema NEURO: Patient is following commands is answering questions appropriately. Alert and oriented x3 Cranial Nerves 2-12 grossly intact Medical Decision & Procedures ER Provider Diagnostic Interpretation: Radiology results as stated below per my review and radiologist interpretation: ABDOMEN AND PELVIS CT WITH IV CONTRAST CT DOSE: 696.99 mGy.cm HISTORY: Pain Pt c/o LLQ abd pain TECHNIQUE: Multiaxial CT images of the abdomen and pelvis were performed following the use of intravenous contrast. COMPARISON STUDY: 01/14/2015 FINDINGS: Lung bases are clear. Liver spleen and pancreas are uniform. Kidneys are negative for mass or hydronephrosis. Bowel pattern is considered nonobstructive. Perirectal fascial planes are intact. Uterus is anteflexed. There is slight fullness of the left rectus musculature compared to the right. Mild infiltrative changes subcutaneous fat anterior to the left and 2 masses extent right pelvic anterior anterior abdominal wall regions. IMPRESSION: 1. No acute process of the abdomen or pelvis. 2. Mild infiltrative changes subcutaneous fat anterior to the left anterior pelvic wall with similar but less prominent findings seen on the right. 3. This is suggestive of a nonspecific cellulitis. 4. No evidence for drainable abscess or collection. 5. Slight fullness left rectus musculature possibly indicative of a small hematoma and/or contusion. Electronically signed by: Castillo Chauhan M.D. 12/30/2016 6:36 PM Dictated Date/Time: 12/30/2016 6:29 PM Laboratory Results 12/30/16 16:55 Red Blood Count 4.76, Mean Corpuscular Volume 73.1, Mean Corpuscular Hemoglobin 22.3, Mean Corpuscular Hemoglobin Concent 30.5, Mean Platelet Volume 11.2, Neutrophils (%) (Auto) 67.3, Lymphocytes (%) (Auto) 25.5, Monocytes (%) (Auto) 5.4, Eosinophils (%) (Auto) 1.4, Basophils (%) (Auto) 0.4, Neutrophils # (Auto) 3.73, Lymphocytes # (Auto) 1.41, Monocytes # (Auto) 0.30, Eosinophils # (Auto) 0.08, Basophils # (Auto) 0.02 12/30/16 16:55 Test 12/30/16 16:55 12/30/16 17:39 White Blood Count 5.54 K/uL (4.8-10.8) Red Blood Count 4.76 M/uL (4.2-5.4) Hemoglobin 10.6 g/dL (12.0-16.0) Hematocrit 34.8 % (37-47) Mean Corpuscular Volume 73.1 fL (80-100) Mean Corpuscular Hemoglobin 22.3 pg (25-34) Mean Corpuscular Hemoglobin Concent 30.5 g/dl (32-36) Platelet Count 201 K/uL (130-400) Mean Platelet Volume 11.2 fL (7.4-10.4) Neutrophils (%) (Auto) 67.3 % Lymphocytes (%) (Auto) 25.5 % Monocytes (%) (Auto) 5.4 % Eosinophils (%) (Auto) 1.4 % Basophils (%) (Auto) 0.4 % Neutrophils # (Auto) 3.73 K/uL (1.4-6.5) Lymphocytes # (Auto) 1.41 K/uL (1.2-3.4) Monocytes # (Auto) 0.30 K/uL (0.11-0.59) Eosinophils # (Auto) 0.08 K/uL (0-0.5) Basophils # (Auto) 0.02 K/uL (0-0.2) RDW Standard Deviation 41.9 fL (36.4-46.3) RDW Coefficient of Variation 15.5 % (11.5-14.5) Immature Granulocyte % (Auto) 0.0 % Immature Granulocyte # (Auto) 0.00 K/uL (0.00-0.02) Microcytosis PRESENT Urine Color YELLOW Urine Appearance CLEAR (CLEAR) Urine pH 6.0 (4.5-7.5) Urine Specific Dille 1.019 (1.000-1.030) Urine Protein NEG (NEG) Urine Glucose (UA) NEG (NEG) Urine Ketones NEG (NEG) Urine Occult Blood NEG (NEG) Urine Nitrite NEG (NEG) Urine Bilirubin NEG (NEG) Urine Urobilinogen NEG (NEG) Urine Leukocyte Esterase NEG (NEG) Est Creatinine Clear Calc Drug Dose 116.7 ml/min Estimated GFR () 117.9 Estimated GFR (Non- 101.8 BUN/Creatinine Ratio 12.3 (10-20) Calcium Level 8.9 mg/dl (8.5-10.1) Total Bilirubin 0.3 mg/dl (0.2-1) Direct Bilirubin 0.1 mg/dl (0-0.2) Aspartate Amino Transf (AST/SGOT) 21 U/L (15-37) Alanine Aminotransferase (ALT/SGPT) 29 U/L (12-78) Alkaline Phosphatase 97 U/L (45-117) Total Protein 6.7 gm/dl (6.4-8.2) Albumin 3.2 gm/dl (3.4-5.0) Lipase 229 U/L (73-393) Human Chorionic Gonadotropin, Quant < 1 mIU/mL Bedside Hemoglobin 10.2 g/dl (12.0-16.0) Bedside Hematocrit 30 % (37-47) Bedside Sodium 141 mEq/L (135-144) Bedside Potassium 3.9 mEq/L (3.3-5.0) Bedside Chloride 104 mEq/L (101-112) Bedside Total CO2 24 mEq/l (24-31) Anion Gap 18.0 mmol/L (16-25) Bedside Blood Urea Nitrogen 9 mg/dl (7-18) Bedside Creatinine 0.9 mg/dl (0.6-1.3) Bedside Glucose (other) 82 mg/dl (70-99) Bedside Ionized Calcium (Yann) 1.16 mmol/l (1.12-1.32) Labs reviewed by ED physician. Medications Administered Medications (Trade) Dose Ordered Sig/Ramone Route Start Time Stop Time Status Last Admin Dose Admin Sodium Chloride 1,000 ml @ 999 mls/hr Q1H1M STAT IV 12/30/16 17:16 12/30/16 18:16 DC 12/30/16 17:41 999 MLS/HR Metoclopramide HCl (Reglan Inj) 10 mg NOW STAT IV 12/30/16 17:16 12/30/16 17:18 DC 12/30/16 17:41 10 MG Ceftriaxone Sodium (Rocephin Inj) 1 gm NOW STAT IV 12/30/16 18:40 12/30/16 18:42 DC 12/30/16 18:58 1 GM Trimethoprim/ Sulfamethoxazole (Septra Ds 800/ 160MG Tab) 1 tab NOW STAT PO 12/30/16 18:40 12/30/16 18:42 DC 12/30/16 18:58 1 TAB ED Course 1712: Past medical records reviewed. The patient was evaluated in room B7. A complete history and physical examination was performed. 1716: Reglan Inj 10 mg IV, NSS 1000 ml @ 999 mls/hr IV. 1840: Trimethoprim/Sulfamethoxazole 1 tab PO, Rocephin Inj 1 gm IV. 1900: Upon reexamination the patient is resting comfortably. I discussed results and treatment plan with the patient. She verbalizes agreement and understanding. The patient is ready for discharge. Medical Decision Differential diagnosis: Etiologies such as appendicitis, diverticulitis, PUD, biliary pathology, UTI, pancreatitis, obstruction, mesenteric ischemia, aortic pathology, infections, inflammatory bowel disease, renal colic, as well as others were entertained. Medication Reconciliation: I attest that I have personally reviewed the patient' s current medication list Blood Pressure Screening: Patient was found to have normal blood pressure on screening and does not require follow up. This is a 26-year-old female who presents emergency department complaining of left lower quadrant abdominal pain. I will note that the patient has a benign abdominal examination. Serial abdominal examinations were performed on the patient in the emergency department and at no time did the patient exhibited a surgical abdomen or even abdominal tenderness. I will note that she has a normal CBC and a normal white blood cell count. Her hemoglobin is at its baseline. She has normal renal profile normal liver profile normal lipase. She has no evidence of urinary tract infection. She is not . The patient was sent for CAT scan of the abdomen pelvis due to her recent section. This was concerning for an area cellulitis however there is no evidence of an abscess. Based on everything including normal white blood cell count, I do believe that the patient is well enough to be discharged home. I will start her on Rocephin and Bactrim and recommended follow-up with obstetrics. Patient was in agreement with the treatment plan. Impression Primary Impression: Left lower quadrant pain Scribe Attestation The scribe's documentation has been prepared under my direction and personally reviewed by me in its entirety. I confirm that the note above accurately reflects all work, treatment, procedures, and medical decision making performed by me. Departure Information Dispostion Home / Self-Care Prescriptions Sulfa/Trimethoprim (Bactrim Ds 800MG/160MG) Tab 1 TAB PO BID for 10 Days, #20 TAB Prov: Jung Doan MD 12/30/16 Cephalexin Monohydrate (KEFLEX) 500 Mg Cap 500 MG PO QID for 10 Days, #40 CAP Prov: Jung Doan MD 12/30/16 Referrals [facility]-Lenora Jaimes M.D. Forms HOME CARE DOCUMENTATION FORM, IMPORTANT VISIT INFORMATION Patient Instructions Abdominal Pain - [facility], Cellulitis - [facility], [facility] Additional Instructions Follow up with Dr Jaimes's office You have been examined and treated today on an emergency basis only. This is not a substitute for, or an effort to provide, complete comprehensive medical care. It is impossible to recognize and treat all injuries or illnesses in a single emergency department visit. It is therefore important that you follow up closely with your PCP. Call as soon as possible for an appointment. Thank you for your time and consideration. I look forward to speaking with you again soon. Please don't hesitate to call us if you have any questions.
== END 2016-12-30 19:39 | disposition home or self-care (01) ==
LOC: C.EDB 16:29
DX: R10.32 Left lower quadrant pain (principal); R05 Cough; R42 Dizziness and giddiness; Z87.09 Personal history of other diseases of the respiratory system; Z87.42 Personal history of other diseases of the female genital tract; Z81.1 Family history of alcohol abuse and dependence; Z82.49 Family history of ischemic heart disease and other diseases of the circulatory system

== ENCOUNTER → 2016-12-30 | Outpatient (CLI) | payer OTHER ==
[~2016-12-30] MED LIST changes: +CEPH500C2 PO; +MTR600X PO; +OXYC-57 PO; +SULF800T23 PO
--- NOTE | 2016-12-30 14:49 | DIAGNOSTIC IMAGING REPORT ---
[facility]UB CLINICAL HISTORY: Abdominal pain COMPARISON STUDY: 02/07/2014 FINDINGS: There is scattered stool within the transverse and right colon. There is no pathologic bowel dilatation. There are no calcifications suspicious for urinary tract calculi. IMPRESSION: No evidence of pathologic bowel dilatation. Electronically signed by: Addison Mercer M.D. 12/30/2016 2:48 PM Dictated Date/Time: 12/30/2016 2:48 PM
== END | disposition home or self-care (01) ==
LOC: C.RADPV 14:23
PROVIDERS: ATTEND Family Medicine
DX: R10.9 Unspecified abdominal pain (principal)

== ENCOUNTER → 2017-02-04 | Outpatient (CLI) | payer OTHER | END | disposition home or self-care (01) | LOC: C.PATHSPEC 13:40 | PROVIDERS: ATTEND Obstetrics & Gynecology | DX: R87.612 Low grade squamous intraepithelial lesion on cytologic smear of cervix (LGSIL) (principal) ==

== ENCOUNTER → 2017-04-15 | Outpatient (CLI) | payer OTHER | END | disposition home or self-care (01) | LOC: C.LABPVFM 10:00 | PROVIDERS: ATTEND Obstetrics & Gynecology | DX: N91.2 Amenorrhea, unspecified (principal) ==

== ENCOUNTER → 2017-05-11 | Outpatient (CLI) | payer OTHER ==
[2017-05-11 13:16] LABS: BLOOD UREA NITROGEN 10 mg/dl (7-18); CREATININE 0.73 mg/dl (0.60-1.20); GLUCOSE 82 mg/dl (70-99)
[2017-05-11 13:17] LABS: ALT/SGPT 18 U/L (12-78); BUN/CREATININE RATIO 13.4 (10-20); CALCIUM 8.6 mg/dl (8.5-10.1); CARBON DIOXIDE 26 mmol/L (21-32); CHLORIDE 107 mmol/L (98-107); CHOLESTEROL 208 mg/dl (0-200); POTASSIUM 3.8 mmol/L (3.5-5.1); SODIUM 139 mmol/L (136-145)
[2017-05-11 13:27] LABS: ALB/GLOB RATIO 0.9 (0.9-2); ALKALINE PHOSPHATASE 94 U/L (45-117); AST/SGOT 21 U/L (15-37); CHOLESTEROL/HDL RATIO 3.8; HDL CHOLESTEROL 55 mg/dl; LDL CHOLESTEROL CALCULATED 122 mg/dl; TRIGLYCERIDES 156 mg/dl (0-150); VERY LOW DENSITY LIPOPROT CALC 31 mg/dl
== END | disposition home or self-care (01) ==
LOC: C.LABPVFM 09:08
PROVIDERS: ATTEND Nurse Practitioner Family
DX: R63.5 Abnormal weight gain (principal)

== ENCOUNTER → 2017-05-16 | Outpatient (CLI) | payer OTHER | END | disposition home or self-care (01) | LOC: C.LABPVFM 10:05 | PROVIDERS: ATTEND Obstetrics & Gynecology | DX: N91.2 Amenorrhea, unspecified (principal) ==

== ENCOUNTER 2017-06-11 17:20 | Emergency (ER) | payer OTHER ==
[~2017-06-11] VITALS: Ht 154.9 cm; Wt 93.8 kg
[2017-06-11 17:30] VITALS: TEMP 37; Ht 154.9 cm; Wt 93.8 kg
--- NOTE | 2017-06-11 17:52 | EMERGENCY ROOM VISIT NOTE ---
History First contact with patient: 17:31 Chief Complaint: VAGINAL BLEEDING Stated Complaint: VAGINAL BLEEDING History of Present Illness The patient is a 27 year old female who presents to the Emergency Room with complaints of vaginal bleeding that started today. The patient thinks she has 6 weeks . Her menses has always been irregular. She thinks that her last menses was in March. The patient says that the blood was bright red. It is only on the toilet paper when she wipes. She is currently wearing a pad. There is no blood on it. She has slight lower abdominal discomfort. She denies any nausea. She is not currently taking any vitamins. She does not smoke or drink alcohol. The patient is with 1 miscarriage in 2014 Review of Systems 10 system review performed and negative unless noted in HPI or below Past Medical/Surgical History Medical Problems: (1) Abdominal pain (2) Abdominal pain (3) Abdominal pain (4) Abdominal pain (5) Carpal Tunnel Syndrome (6) Cellulitis (7) Dehydration (8) Eustachian tube dysfunction (9) Metrorrhagia (10) depression (11) Right upper quadrant abdominal pain (12) Uterine contractions at greater than 20 weeks of gestation (13) Vaginal bleeding in (14) Vaginitis (15) Vasovagal syncope (16) Viral bronchitis Surgical Problems: (1) History of appendectomy (2) History of delivery (3) History of section Family History Alcoholism FH: HTN (hypertension) FH: cancer Social History Smoking Status: Never Smoker Alcohol Use: none Drug Use: none Housing Status: lives with family Occupation Status: employed Current/Historical Medications No Active Prescriptions or Reported Meds Physical Exam Vital Signs Date Time Temp Pulse Resp B/P (MAP) Pulse Ox O2 Delivery O2 Flow Rate FiO2 06/11/17 20:32 87 18 110/70 97 06/11/17 19:59 85 16 105/64 98 Room Air 06/11/17 17:30 37.0 93 18 128/84 99 Room Air Physical Exam VITALS: Vitals are noted on the nurse's note and reviewed by myself. Vital signs stable. GENERAL: 27-year-old female, in no acute distress, nondiaphoretic, SKIN: The skin was without rashes, erythema, edema, or bruising. HEAD: Normocephalic atraumatic. MOUTH: Mucous membranes moist. NECK:. No JVD. HEART: Regular rate and rhythm without murmurs gallops or rubs. LUNGS: Clear to auscultation bilaterally without wheezes, rales or rhonchi. No accessory muscle use. ABDOMEN: Positive bowel sounds x 4.Soft, minimal tenderness in the left lower quadrant, without organomegaly. No guarding or rebound tenderness. MUSCULOSKELETAL: No muscle atrophy, erythema, or edema noted. . Normal gait. Strength 5/5 throughout. NEURO: Patient was alert and oriented to person place and time. Normal sensation to touch. No focal neurological deficits. Medical Decision & Procedures ER Provider Diagnostic Interpretation: Transvaginal ultrasound IMPRESSION: 1. No intrauterine gestational sac is visualized. In the setting of a positive test this indicates a of uncertain location. Correlation with serial quantitative beta hCGs is recommended, as the differential diagnosis includes early intrauterine , ectopic , or spontaneous . 2. Tiny nonspecific endometrial cysts 3. No pathologic adnexal masses Electronically signed by: Addison Mercer M.D. 06/11/2017 7:33 PM Dictated Date/Time: 06/11/2017 7:27 PM The status of this report is Signed. Draft = Not yet reviewed or approved by Radiologist. Signed = Reviewed and approved by Radiologist. Laboratory Results 06/11/17 17:58 Red Blood Count 4.95, Mean Corpuscular Volume 77.0, Mean Corpuscular Hemoglobin 24.8, Mean Corpuscular Hemoglobin Concent 32.3, Mean Platelet Volume 10.3, Neutrophils (%) (Auto) 67.4, Lymphocytes (%) (Auto) 25.1, Monocytes (%) (Auto) 5.6, Eosinophils (%) (Auto) 1.2, Basophils (%) (Auto) 0.5, Neutrophils # (Auto) 4.46, Lymphocytes # (Auto) 1.66, Monocytes # (Auto) 0.37, Eosinophils # (Auto) 0.08, Basophils # (Auto) 0.03 06/11/17 17:58 Test 06/11/17 17:58 06/11/17 18:50 White Blood Count 6.61 K/uL (4.8-10.8) Red Blood Count 4.95 M/uL (4.2-5.4) Hemoglobin 12.3 g/dL (12.0-16.0) Hematocrit 38.1 % (37-47) Mean Corpuscular Volume 77.0 fL (80-100) Mean Corpuscular Hemoglobin 24.8 pg (25-34) Mean Corpuscular Hemoglobin Concent 32.3 g/dl (32-36) Platelet Count 217 K/uL (130-400) Mean Platelet Volume 10.3 fL (7.4-10.4) Neutrophils (%) (Auto) 67.4 % Lymphocytes (%) (Auto) 25.1 % Monocytes (%) (Auto) 5.6 % Eosinophils (%) (Auto) 1.2 % Basophils (%) (Auto) 0.5 % Neutrophils # (Auto) 4.46 K/uL (1.4-6.5) Lymphocytes # (Auto) 1.66 K/uL (1.2-3.4) Monocytes # (Auto) 0.37 K/uL (0.11-0.59) Eosinophils # (Auto) 0.08 K/uL (0-0.5) Basophils # (Auto) 0.03 K/uL (0-0.2) RDW Standard Deviation 40.1 fL (36.4-46.3) RDW Coefficient of Variation 14.2 % (11.5-14.5) Immature Granulocyte % (Auto) 0.2 % Immature Granulocyte # (Auto) 0.01 K/uL (0.00-0.02) Anion Gap 8.0 mmol/L (3-11) Est Creatinine Clear Calc Drug Dose 124.3 ml/min Estimated GFR () 135.3 Estimated GFR (Non- 116.7 BUN/Creatinine Ratio 15.5 (10-20) Calcium Level 8.7 mg/dl (8.5-10.1) Total Bilirubin 0.2 mg/dl (0.2-1) Aspartate Amino Transf (AST/SGOT) 15 U/L (15-37) Alanine Aminotransferase (ALT/SGPT) 18 U/L (12-78) Alkaline Phosphatase 111 U/L (45-117) Total Protein 6.6 gm/dl (6.4-8.2) Albumin 3.0 gm/dl (3.4-5.0) Globulin 3.6 gm/dl (2.5-4.0) Albumin/Globulin Ratio 0.8 (0.9-2) Human Chorionic Gonadotropin, Quant 522 mIU/mL Urine Color YELLOW Urine Appearance CLEAR (CLEAR) Urine pH 6.0 (4.5-7.5) Urine Specific [place] 1.011 (1.000-1.030) Urine Protein NEG (NEG) Urine Glucose (UA) NEG (NEG) Urine Ketones NEG (NEG) Urine Occult Blood 3+ (NEG) Urine Nitrite NEG (NEG) Urine Bilirubin NEG (NEG) Urine Urobilinogen NEG (NEG) Urine Leukocyte Esterase NEG (NEG) Urine WBC (Auto) 1-5 /hpf (0-5) Urine RBC (Auto) 5-10 /hpf (0-4) Urine Hyaline Casts (Auto) 0 /lpf (0-5) Urine Epithelial Cells (Auto) >30 /lpf (0-5) Urine Bacteria (Auto) NEG (NEG) ED Course Patient was seen and examined Vital signs including blood pressure were reviewed medications list was verified with patient Labs were obtained, and a saline lock was established Imaging was performed The patient was reassessed. We discussed the findings. I spoke with Dr. Johnson UNIVERSITY ARCHIVIST. The case was also discussed with my supervising physician. I reviewed her workup again with the patient and the patient's family. They voiced understanding. I reviewed discharge instructions the patient. They voiced understanding and had no further questions. Medical Decision Differential diagnosis: Threatened , complete spontaneous , incomplete spontaneous , Abnormal vaginal bleeding, menorrhagia, metrorrhagia, uterine fibroids, endometrial polyps, thyroid abnormality, anemia secondary to acute blood loss, ectopic , ovarian cysts, vaginal laceration, subchorionic hemorrhage This patient is a 27-year-old female that presents to the emergency department with vaginal bleeding. She reports that she is approximately 6 weeks , however her menses has been fairly unreliable and variable. She was complaining of mild discomfort in her left side. On exam, her abdomen is benign. She is nontoxic in appearance. An hCG quantitative was performed. It is in the low 500s. A pelvic ultrasound was performed. No gestational sac was noted. Given these findings, I suspected that she likely was having a miscarriage. She had a hCG quantitative level drawn at the beginning of May. It has slightly decreased. I have a very low suspicion of ectopic given her physical exam and level of pain. The patient's blood type is B+. There is no need for Rhogam. The case was also discussed with obstetrics. They were in agreement with my plan. The patient will be discharged home with follow-up for repeat ultrasound and blood work in 48 hours. She already has an appointment scheduled. She was advised to come back to the emergency department with any new or concerning symptoms. This chart was completed in part utilizing [employer] Speech Voice Recognition software. Attempts were made to minimize the grammatical errors, random word insertions, pronoun errors and incomplete sentences. Any formal questions or concerns about the content, text or information contained within the body of this dictation should be directly addressed to the provider for clarification. Consults Consulting Physician: Dr. Johnson Impression Primary Impression: Vaginal bleeding affecting early Departure Information Dispostion Home / Self-Care Condition GOOD Prescriptions No Active Prescriptions or Reported Meds Referrals No Doctor, Assigned (PCP) Patient Instructions My [facility] ! [facility] Additional Instructions You were evaluated in the emergency department today for vaginal bleeding. Based on your hormone levels, it is possible that this is an abnormal or a miscarriage. It is very important for you to follow-up with your axle and frame mechanic in 48 hours. Please call the office early Tuesday morning to schedule an appointment with a doctor. You will need repeat blood work. Pelvic rest. This means nothing in the vagina. No sexual activity. Please do not use tampons. Please return immediately to the emergency department with any worsening pain, severe vaginal bleeding more than 2 pads per hour, fever, chest pain or difficulty breathing.
[2017-06-11 18:30] LABS: BASO % 0.5 %; BASO ABS # 0.03 K/uL (0-0.2); COMPLETE YES; EOS % 1.2 %; HEMATOCRIT 38.1 % (37-47); IG% 0.2 %; LYMPH % 25.1 %; LYMPH ABS # 1.66 K/uL (1.2-3.4); MEAN CORPUSCULAR HEMOGLOBIN 24.8 pg (25-34); MEAN CORPUSCULAR HGB CONC 32.3 g/dl (32-36); MEAN PLATELET VOLUME 10.3 fL (7.4-10.4); MONO % 5.6 %; NEUT % 67.4 %; PLATELET COUNT 217 K/uL (130-400); RED BLOOD COUNT 4.95 M/uL (4.2-5.4); WHITE BLOOD COUNT 6.61 K/uL (4.8-10.8)
[2017-06-11 18:54] LABS: BUN/CREATININE RATIO 15.5 (10-20); CALCIUM 8.7 mg/dl (8.5-10.1); CREATININE 0.71 mg/dl (0.60-1.20); POTASSIUM 3.7 mmol/L (3.5-5.1)
[2017-06-11 18:57] LABS: ALB/GLOB RATIO 0.8 (0.9-2)
[2017-06-11 19:03] LABS: URINE APPEARANCE CLEAR (CLEAR); URINE BILIRUBIN NEG (NEG); URINE COLOR YELLOW; URINE EPITHELIAL CELL AUTO >30 /lpf (0-5); URINE NITRITE NEG (NEG); URINE SPECIFIC GRAVITY 1.011 (1.000-1.030); UROBILINOGEN NEG (NEG)
[2017-06-11 19:10] LABS: MANUAL MICROSCOPIC REQUIRED? NO; REVIEW REQ? YES
--- NOTE | 2017-06-11 19:34 | DIAGNOSTIC IMAGING REPORT ---
PELVIC ULTRASOUND WITH TRANSABDOMINAL AND ENDOVAGINAL SCANNING CLINICAL HISTORY: Vaginal bleeding. . COMPARISON STUDY: 04/15/2016 FINDINGS: Imaging was performed with a transabdominal and endovaginal fashion. The uterus measured 9 x 4.7 cm in the sagittal plane. The endometrial stripe measured 17 mm. There are few tiny cystic spaces within the endometrium. There is trace fluid present within the endocervical canal. The right ovary measured 32 x 15 x 29 mm and appear architecturally normal. The left ovary measured 29 x 32 x 23 mm and contained a 22 mm follicle. No intrauterine gestational sac is visualized. IMPRESSION: 1. No intrauterine gestational sac is visualized. In the setting of a positive test this indicates a of uncertain location. Correlation with serial quantitative beta hCGs is recommended, as the differential diagnosis includes early intrauterine , ectopic , or spontaneous . 2. Tiny nonspecific endometrial cysts 3. No pathologic adnexal masses Electronically signed by: Addison Mercer M.D. 06/11/2017 7:33 PM Dictated Date/Time: 06/11/2017 7:27 PM
[2017-06-11 20:32] VITALS: BP 110/70; PULSE 87; O2SAT 97
== END 2017-06-11 20:34 | disposition home or self-care (01) ==
LOC: C.EDB 17:21 → C.EDA 20:34
DX: O20.8 Other hemorrhage in early pregnancy (principal); Z3A.01 Less than 8 weeks gestation of pregnancy; G56.00 Carpal tunnel syndrome, unspecified upper limb; Z81.1 Family history of alcohol abuse and dependence; Z82.49 Family history of ischemic heart disease and other diseases of the circulatory system

== ENCOUNTER → 2017-06-18 | Outpatient (CLI) | payer OTHER | END | disposition home or self-care (01) | LOC: C.LABPVFM 08:28 | PROVIDERS: ATTEND Obstetrics & Gynecology | DX: O03.9 Complete or unspecified spontaneous abortion without complication (principal) ==

== ENCOUNTER → 2017-07-06 | Outpatient (CLI) | payer OTHER | END | disposition home or self-care (01) | LOC: C.LABPVFM 11:54 | PROVIDERS: ATTEND Nurse Practitioner Family | DX: O03.9 Complete or unspecified spontaneous abortion without complication (principal) ==

== ENCOUNTER → 2017-11-23 | Outpatient (CLI) | payer OTHER | END | disposition home or self-care (01) | LOC: C.LABPVFM 10:23 | PROVIDERS: ATTEND Obstetrics & Gynecology | DX: Z32.00 Encounter for pregnancy test, result unknown (principal) ==

== ENCOUNTER → 2018-02-09 | Outpatient (CLI) | payer OTHER ==
--- NOTE | 2018-02-09 11:37 | DIAGNOSTIC IMAGING REPORT ---
LEFT ANKLE 3 VIEWS HISTORY: LT ANKLE PAIN COMPARISON: None. FINDINGS: There is no fracture or dislocation. Mild anterior soft tissue swelling. No radiopaque foreign bodies. IMPRESSION: No fractures. Electronically signed by: Carter Whyte M.D. 02/09/2018 11:35 AM Dictated Date/Time: 02/09/2018 11:35 AM
== END | disposition home or self-care (01) ==
LOC: C.RADPV 11:17
PROVIDERS: ATTEND Nurse Practitioner Family
DX: M25.572 Pain in left ankle and joints of left foot (principal)

== ENCOUNTER 2019-01-08 05:39 | Inpatient (IN) ==
--- NOTE | 2018-12-22 12:25 | PAT Medication Instructions ---
Medication Instructions Date of Service December 22, 2018 Home Medications PNV cmb#95-ferrous fumarate-FA [] 1 tab PO DAILY DO NOT take the morning of surgery PNV cmb#95-ferrous fumarate-FA [] 1 tab PO DAILY Other Notes If you have any questions please call us at [phone] or [phone] or [phone] or [phone]
--- NOTE | 2018-12-22 12:25 | Anesthesiology Consultation ---
Date of Service December 22, 2018 History Surgery Operation Date: 01/08/19 07:30 Proposed Procedures p Section in LD - Ginger Johnson MD s Post Tubal Ligation Labor & Deliv - Ginger Johnson MD Height/Weight Height: 5 ft Weight: 90.718 kg Allergies Allergy/AdvReac Type Severity Reaction Status Date / Time No Known Allergies Allergy Unverified 12/21/18 08:02 Medications Home Medications Medication Instructions Recorded Confirmed Last Taken PNV cmb#95-ferrous fumarate-FA 1 tab PO DAILY 12/21/18 12/21/18 Unknown [] Past Medical History Medical History Acid reflux WITH Past Surgical History Surgical History History of 2 sections History of appendectomy History of eye surgery AGE 5/LEFT History of surgery on left wrist Social History Smoking Status: Never smoker Do You Dip or Chew Tobacco: No Hx Alcohol Use: No Hx Substance Use: No substance use type: does not use
--- NOTE | 2018-12-27 10:31 | Anesthesiology Consultation ---
Date of Service December 27, 2018 Assessment & Plan (1) Encounter for pre-operative examination: Chart Review Chart Review: Acceptable Risk for Surgery (pending labs AM DOS) and Patient seen in Pre Admission Testing History Surgery Operation Date: 01/08/19 07:30 Proposed Procedures p Section in LD - Ginger Johnson MD s Post Tubal Ligation Labor & Deliv - Ginger Johnson MD Height/Weight Height: 5 ft Weight: 90.718 kg Allergies Allergy/AdvReac Type Severity Reaction Status Date / Time No Known Allergies Allergy Unverified 12/21/18 08:02 Medications Home Medications Medication Instructions Recorded Confirmed Last Taken PNV cmb#95-ferrous fumarate-FA 1 tab PO DAILY 12/21/18 12/25/18 12/24/18 08:00 [] Past Medical History Medical History Acid reflux WITH Anemia OB MONITORING Obesity Post depression PER RECORDS Exercise / Class Metabolic Activity III < 4 Walking/Shop/Light housework Past Family History Family History Mother Hypertension Other Family history of cancer Past Surgical History Surgical History History of 2 sections C/S 08/26 FAILURE TO PROGRESS C/S: 11/22/16: SAB X2 ATTEMPTS AT L3-L4 AT [facility] (GOOD PAIN CONTROL) History of appendectomy 2007 History of eye surgery AGE 5/LEFT History of surgery on left wrist CYST EXCISION History of tooth extraction WISDOM TEETH Past Anesthesia History No Hx of Anesthesia Complications and No Family Hx of Anesthesia Complications History of PONV No Hx of PONV and No Hx of Motion Sickness Social History Smoking Status: Never smoker Do You Dip or Chew Tobacco: No Hx Alcohol Use: No Hx Substance Use: No substance use type: does not use Review of Systems Patient denies chest pain, shortness of breath, cough, wheezing, palpitations. Physical Exam Vital Signs VITALS BP 115/67 P 104 TEMP 98.0 SP02 97%RA RESP 18 PHYSICAL Full neck and c-spine range of motion. Full TMJ range of motion. TMD 3 finger breaths Mallampati Score 2 Dentition: intact Lungs: clear throughout to auscultation Cardiac: regular rate and rhythm, no murmurs noted Spine: normal Extremities: no edema Testing Laboratory Results 12/25/18 WBC 8.13 H/H 9.8/30.6 PLATELETS 151
[2019-01-08] MEDS ORDERED: LACTATED RINGER'S 1,000 ML IV SCH ×3 (05:45→06:39)
[2019-01-08] MEDS ORDERED: CEFAZOLIN 3,000 MG in DEXTROSE 5% 50 ML IV SCH (06:00)
[2019-01-08] MEDS ORDERED: CITRIC ACID/SODIUM CITRATE 15 ML UDC PO SCH (06:00)
[2019-01-08 06:25] LABS: Basophils # (auto) 0.01 K/uL (0-0.2); Basophils % (auto) 0.1 %; Eosinophils # (auto) 0.11 K/uL (0-0.5); Eosinophils % (auto) 1.5 %; Hematocrit (blood only) 31.8 % (37-47); Hemoglobin 10.1 g/dL (12.0-16.0); Immature Granulocytes # (auto) 0.03 K/uL (0.00-0.02); Immature Granulocytes % (auto) 0.4 %; Lymphocytes % (auto) 17.9 %; Mean Corpuscular Volume 75.2 fL (80-100); Mean Platelet Volume 10.5 fL (7.4-10.4); Monocytes # (auto) 0.45 K/uL (0.11-0.59); Monocytes % (auto) 6.2 %; Neutrophils # (auto) 5.36 K/uL (1.4-6.5); Neutrophils % (auto) 73.9 %; Platelet Count 146 K/uL (130-400); RDW Coefficient of Variation 14.3 % (11.5-14.5); RDW Standard Deviation 38.7 fL (36.4-46.3); Red Blood Count 4.23 M/uL (4.2-5.4); White Blood Count 7.26 K/uL (4.8-10.8)
[2019-01-08 06:29] LABS: Mean Corpuscular Hgb Conc 31.8 g/dL (32-36)
[2019-01-08] MEDS ORDERED: MoRPHine SULFATE PF 1 MG/ML 10 ML AMP/VIAL ONE (07:31)
[2019-01-08] MEDS ORDERED: OXYTOCIN 10 UNITS/ML VIAL ONE (08:22)
[2019-01-08] MEDS ORDERED: ePHEDrine sulfate 50 MG/ML SYR ONE (08:23)
[2019-01-08] MEDS ORDERED: PHENYLEPHRINE 100MCG/ML 5ML SYR ONE (08:23)
--- NOTE | 2019-01-08 08:46 | Operative Report ---
Post Operative Report Pre & Post Diagnosis Operation Date: 01/08/19 07:30 <No data on this case meets the specified criteria> Paz intrauterine at 39 1/7 Prior x2 Obesity Desires sterilization Procedure Operation Date: 01/08/19 07:30 <No data on this case meets the specified criteria> Repeat Low Transverse section, Bilateral tubal ligation via Montgomery method Surgeon Ginger Johnson MD Screw Down Kaushik Estimated Blood Loss 700 Findings Consistent with Post-Op Diagnosis Specimens Section each tube. Placenta. cord blood. Drains Ofrbes Anesthesia Type Spinal Complications none Disposition Accompanied Patient To Recovery: Yes Disposition: L&D Description of Procedure The patient was brought to the operating room and placed on the table in the supine position with a leftward tilt, then prepped and draped in standard sterile fashion. A hard time out was taken prior to proceeding. A pfannensteil incision was created sharply and carried down to the fascia using bovie electrocautery. The fascia was nicked and then extended using samayoa scissors. The edges of the fascia were grasped with Melo clamps and elevated, then sharply and bluntly dissected off the underlying rectus. The midline of the rectus was identified and bluntly . The peritoneum was bluntly entered, and this entry was extended using pressure from the surgeon's hands. The bladder retractor was placed and the lower uterine segment was examined and found to be well developed. The nicky retractor was placed. A bladder flap was created and the retractor was replaced behind this flap to protect the bladder. A transverse lower uterine incision was then created, with final entry to the uterine cavity made in a blunt manner with the surgeon's finger. Clear amniotic fluid was encountered. The head was elevated to the incision and delivered using mild fundal pressure. The cord was doubly clamped and cut, then the vigorous was taken to the warmer for equipment operator intermodal yard care. The placenta was manually extracted, then the uterus was gently exteriorized from the maternal abdomen. The cavity was cleared of clot and debris using a dry lap sponge. The angles of the incision were identified with allis clamps, and the hysterotomy was then repaired in running locked fashion using 0-vicryl suture, followed by a second imbricating layer. The tubes and ovaries were examined and found to be normal bilaterally. The tubes were each ligated via Montgomery method using 0-chromic suture and a knuckle of tube excised and sent for pathology from each side. The posterior gutter was irrigated and cleared of clot and debris. The uterus was then gently re-internalized to the abdomen. Lateral gutters were cleared of clot and debris using a damp lap sponge, and a final exam of the hysterotomy revealed good hemostasis. The rectus muscles were allowed to reapproximate naturally. The angle of the fascia was grasped with a Melo clamp and the fascia was then repaired in running non-locked fashion with 1- vicryl suture from each side, meeting in the middle. At the completion of repair, the fascia was examined and found to be free of any defect. The subcutaneous tissue was copiously irrigated and then reapproximated using 3-0 chromic in two layers. The skin was then closed using kenna and a sterile dressing was applied. The forbes was noted to be draining clear yellow urine as the patient was transferred back to her recovery room. I attest to the content of the Intraoperative Record and any orders documented therein. Any exceptions are noted below.
[2019-01-08] MEDS ORDERED: MoRPHine SULFATE 2 MG/ML CARP IV PRN (09:31)
[2019-01-08] MEDS ORDERED: HYDROmorphone INJ 0.5 MG/0.5 ML SYR IV PRN (09:31)
[2019-01-08] MEDS ORDERED: ONDANSETRON INJ 2 MG/ML 2 ML VIAL IV PRN ×2 (09:31→11:34)
[2019-01-08] MEDS ORDERED: MoRPHine SULFATE PF 1 MG/ML 10 ML AMP/VIAL INT SPINAL ONE (09:31)
[2019-01-08] MEDS ORDERED: NALBUPHINE HCL INJ 10 MG/ML AMP IV PRN (09:31)
[2019-01-08] MEDS ORDERED: NALOXONE HCL 1 MG in SODIUM CHLORIDE 0.9% 1000ML 1,000 ML IV PRN (09:31)
[2019-01-08] MEDS ORDERED: ePHEDrine sulfate 50 MG/ML AMP IV PRN (09:31)
[2019-01-08] MEDS ORDERED: DiphenhydrAMINE HCL 50 MG/ML VIAL IV PRN ×2 (09:31→11:34)
[2019-01-08] MEDS ORDERED: NALOXONE HCL 0.4 MG/1 ML VIAL/CARP IV PRN (09:31)
[2019-01-08] MEDS ORDERED: LACTATED RINGER'S 500 ML IV PRN (09:31)
[2019-01-08] MEDS ORDERED: NALOXONE HCL 0.08 MG in SYRINGE 1.8 ML IV PRN (09:31)
[2019-01-08] MEDS ORDERED: MEPERIDINE HCL 25 MG/ML CARP IV PRN (09:31)
--- NOTE | 2019-01-08 09:33 | History and Physical Report ---
DATE OF ADMISSION: 01/08/2019 PREOPERATIVE DIAGNOSIS: Prior section x2. HISTORY OF PRESENT ILLNESS: This is a 28-year-old G5, P2-0-2-2 presenting with a bernstein intrauterine at 39 and 1. The patient has no obstetric complaints at the time of presentation. She is planning for a repeat third section with a bilateral tubal ligation this morning. Her is complicated by depression with anxiety, herpes simplex, history of abnormal Pap smear, but normal at this first visit and obesity in . ALLERGIES: No known drugs. MEDICATIONS: vitamins. PAST MEDICAL HISTORY: Notable as above for depression and anxiety and abnormal Paps. She is vaccinated for chickenpox and has a history of ovarian cysts. PAST SURGICAL HISTORY: section x2, colposcopy, eye surgery, wisdom tooth extraction, appendectomy and colposcopy. SOCIAL HISTORY: Negative x3. Lives with ficristian, 2 children and her dog. OBSTETRIC HISTORY: Two prior MABs, a section in 2009 for an 8-pound 14-ounce female and a section in 2016 for an 8-pound 4-ounce female. 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 The second , cranial stenosis. Current has a low risk female panorama result and the patient declined an M consult. Her anatomy scan was noted to be normal. PHYSICAL EXAMINATION: VITAL SIGNS: Most recent blood pressure in the office 110/80. Most recent weight 229. Vitals to be repeated on arrival to L and D. heart tones at last check in the office 135. Fundal height appropriate for gestational age. GENERAL: The patient was in no acute distress, alert. HEART: Showed regular rate and rhythm. LUNGS: Clear to auscultation bilaterally. ABDOMEN: Obese and gravid. PELVIC: Cervicovaginal exam was declined by the patient. EXTREMITIES: Normal without obvious edema. ASSESSMENT AND PLAN: A 28-year-old G5, P2-0-2-2 for a third section with bilateral tubal ligation today. The patient has been previously consented by myself in the office. She understands the risks of the procedure are increased given this is her third . She also understands the risks and alternatives to the bilateral tubal ligation including surgical injury, failure of the tubal and regret.
[2019-01-08] MEDS ORDERED: SODIUM CHLORIDE 0.9% 1000ML 1,000 ML IV SCH (09:45)
[2019-01-08] MEDS ORDERED: NO NARCOTICS OR SEDATIVES SCH (09:45)
[2019-01-08] MEDS ORDERED: DIPHTHERIA/TETANUS/PERTUSSIS 0.5 ML SYR/VIAL IM ONE (11:34)
[2019-01-08] MEDS ORDERED: BENZOCAINE 20% AER SPR 82.5 GM CAN EXT PRN (11:34)
[2019-01-08] MEDS ORDERED: HYDROCORTISONE ACETATE 25 MG SUPP PR PRN (11:34)
[2019-01-08] MEDS ORDERED: OXYTOCIN 30 UNITS in LACTATED RINGER'S 1,000 ML IV SCH (11:34)
[2019-01-08] MEDS ORDERED: MAGNESIUM HYDROXIDE SUSP 30 ML UDC PO PRN (11:34)
[2019-01-08] MEDS ORDERED: SENNA 8.6 MG TAB PO PRN (11:34)
[2019-01-08] MEDS ORDERED: SUPERCREAM 0.870% 15 GM JAR EXT PRN (11:34)
[2019-01-08] MEDS ORDERED: PROMETHAZINE HCL 25 MG in SODIUM CHLORIDE 0.9% 50 ML IV PRN (11:34)
[2019-01-08] MEDS: DOCUSATE SODIUM 100 MG CAP PO SCH ×2 (11:50→20:24)
[2019-01-08] MEDS: SIMETHICONE 80 MG CHEW PO SCH ×4 (11:51→20:23)
[2019-01-08] MEDS: PRENATAL VITAMIN 1 TAB PO SCH (11:51)
[2019-01-08] MEDS: KETOROLAC 30 MG/ML VIAL IV PRN (11:57)
--- NOTE | 2019-01-08 14:22 | Anesthesiology Progress Note ---
Date of Service January 08, 2019 Anesthesia Post Procedure Vital Signs Vital Signs: Temp Pulse Pulse Resp BP BP Pulse Ox 01/08/19 13:50 71 18 99 01/08/19 12:43 36.4 C L 70 18 113/71 99 01/08/19 12:22 01/08/19 11:24 36.4 C L 78 18 108/70 92 01/08/19 11:19 88 106/53 L 92 01/08/19 11:18 80 95 01/08/19 11:14 74 94 01/08/19 11:13 69 96 01/08/19 11:09 66 111/65 01/08/19 11:08 68 96 01/08/19 11:06 68 93 01/08/19 11:03 85 98 01/08/19 11:00 80 93 01/08/19 10:58 93 H 95 01/08/19 10:53 68 95 01/08/19 10:48 36.5 C 78 20 97 01/08/19 10:43 68 94 01/08/19 10:42 71 94 01/08/19 10:39 73 102/66 01/08/19 10:38 68 97 01/08/19 10:33 69 97 01/08/19 10:28 66 20 106/70 97 01/08/19 10:25 68 94 01/08/19 10:23 66 96 01/08/19 10:18 71 105/58 L 97 01/08/19 10:15 91 H 94 01/08/19 10:13 85 95 01/08/19 10:08 79 105/64 96 01/08/19 10:03 75 96 01/08/19 09:59 71 107/66 01/08/19 09:58 74 98 01/08/19 09:53 72 99 01/08/19 09:48 72 18 107/70 99 01/08/19 09:43 80 99 01/08/19 09:38 66 18 103/69 99 01/08/19 09:34 78 93 01/08/19 09:33 83 100 01/08/19 09:29 63 102/68 01/08/19 09:28 69 18 100 01/08/19 09:26 82 94 01/08/19 09:23 78 98 01/08/19 09:20 69 110/58 L 01/08/19 09:18 72 20 98 01/08/19 09:13 77 98 01/08/19 09:08 89 20 112/70 98 01/08/19 09:03 77 100 01/08/19 08:58 86 20 106/55 L 99 01/08/19 08:57 94 H 92 01/08/19 08:53 82 96 01/08/19 08:49 81 102/54 L 01/08/19 08:48 36.2 C L 82 20 99 01/08/19 05:56 36.9 C 101 H 18 114/90 01/08/19 05:48 101 H 114/90 Pulse Ox 01/08/19 13:50 01/08/19 12:43 01/08/19 12:22 98 01/08/19 11:24 96 01/08/19 11:19 01/08/19 11:18 01/08/19 11:14 01/08/19 11:13 01/08/19 11:09 01/08/19 11:08 01/08/19 11:06 01/08/19 11:03 01/08/19 11:00 01/08/19 10:58 01/08/19 10:53 01/08/19 10:48 01/08/19 10:43 01/08/19 10:42 01/08/19 10:39 01/08/19 10:38 01/08/19 10:33 01/08/19 10:28 01/08/19 10:25 01/08/19 10:23 01/08/19 10:18 01/08/19 10:15 01/08/19 10:13 01/08/19 10:08 01/08/19 10:03 01/08/19 09:59 01/08/19 09:58 01/08/19 09:53 01/08/19 09:48 01/08/19 09:43 01/08/19 09:38 01/08/19 09:34 01/08/19 09:33 01/08/19 09:29 01/08/19 09:28 01/08/19 09:26 01/08/19 09:23 01/08/19 09:20 01/08/19 09:18 01/08/19 09:13 01/08/19 09:08 01/08/19 09:03 01/08/19 08:58 01/08/19 08:57 01/08/19 08:53 01/08/19 08:49 01/08/19 08:48 01/08/19 05:56 01/08/19 05:48 Pain Intensity Lower Abdomen: Pain Intensity: 6 Transfer of Care Handoff Completed per policy Notes Mental Status: alert / awake / arousable and participated in evaluation Patient Amnestic to Procedure: Yes Nausea / Vomiting: adequately controlled Pain: adequately controlled Airway Patency, RR, SpO2: stable & adequate BP & HR: stable & adequate Hydration State: stable & adequate Anesthetic Complications: no major complications apparent
[2019-01-08] MEDS: FERROUS SULFATE 325 MG TAB PO SCH (14:34)
[2019-01-08] MEDS: LACTATED RINGER'S 1,000 ML IV SCH ×2 (22:59→23:00)
[2019-01-09] MEDS: KETOROLAC 30 MG/ML VIAL IV PRN (00:31)
[2019-01-09] MEDS ORDERED: DC INTRASPINAL MORPHINE SCH (03:31)
[2019-01-09] MEDS ORDERED: OXYCODONE/ACETAMINOPHEN 5mg/325mg TAB PO PRN (03:32)
[2019-01-09] MEDS ORDERED: KETOROLAC 30 MG/ML VIAL IV PRN (03:32)
[2019-01-09] MEDS ORDERED: MEPERIDINE HCL 50 MG/ML CARP IV PRN (03:32)
[2019-01-09] MEDS ORDERED: DiphenhydrAMINE HCL 50 MG/ML VIAL IV PRN (03:32)
[2019-01-09 06:53] LABS: Basophils # (auto) 0.02 K/uL (0-0.2); Basophils % (auto) 0.2 %; Eosinophils # (auto) 0.11 K/uL (0-0.5); Eosinophils % (auto) 1.3 %; Hematocrit (blood only) 28.9 % (37-47); Hemoglobin 9.1 g/dL (12.0-16.0); Immature Granulocytes # (auto) 0.04 K/uL (0.00-0.02); Immature Granulocytes % (auto) 0.5 %; Lymphocytes # (auto) 1.02 K/uL (1.2-3.4); Lymphocytes % (auto) 12.2 %; Mean Corpuscular Hgb Conc 31.5 g/dL (32-36); Mean Corpuscular Volume 75.3 fL (80-100); Mean Platelet Volume 11.1 fL (7.4-10.4); Monocytes # (auto) 0.61 K/uL (0.11-0.59); Monocytes % (auto) 7.3 %; Neutrophils # (auto) 6.58 K/uL (1.4-6.5); Neutrophils % (auto) 78.5 %; Platelet Count 130 K/uL (130-400); RDW Coefficient of Variation 14.5 % (11.5-14.5); RDW Standard Deviation 39.5 fL (36.4-46.3); Red Blood Count 3.84 M/uL (4.2-5.4); White Blood Count 8.38 K/uL (4.8-10.8)
--- NOTE | 2019-01-09 06:54 | Obstetrical Progress Note ---
Date of Service <Ezio Sanchez, - Last Filed: 01/09/19 06:54> January 09, 2019 Assessment & Plan <Ezio Sanchez DO - Last Filed: 01/09/19 06:54> (1) Status post section routine follow-up: -vital signs reviewed and WNL -last Hgb 10.1 -Blood type: B+, GBS-, Rubella Immune -pt doing well clinically -encourage ambulation, monitor and control pain with motrin tylenol, cont regular diet, monitor lochia -cont encourage breast feeding Subjective <Ezio Sanchez - Last Filed: 01/09/19 06:54> 28 y/o POD1 found in bed this morning in NAD. Reports no acute overnight events. Pt states that she has no pain other than appropriate soreness. Tolerating PO intake without N/V. Able to ambulate without issue. She is breast feeding without issue. No issues with voiding, no gas/BM yet. No other acute concerns or complaints. Review of Systems All systems reviewed & are unremarkable except as noted in HPI & below Physical Exam <Ezio Sanchez, - Last Filed: 01/09/19 06:54> Constitutional WD/WN, vitals as above Respiratory normal respiratory effort, lungs clear to auscultation Cardiovascular RRR, no murmur, no edema Gastrointestinal (Abdomen) mild abd tenderness Bandage C/D/I. Incision not visualized, please defer to attending findings Fundus 1 above U. Please correlate with attending findings Skin no rashes, warm and dry Psychiatric A+Ox3, euthymic affect Lymphatic no LE swelling, no calf tenderness Results & Data <Ezio KandiceRan Sanchez, - Last Filed: 01/09/19 06:54> Vital Signs (Past 12 Hours) Vital Signs Temp Pulse Resp BP Pulse Ox 01/09/19 03:30 36.8 C 87 18 117/78 01/09/19 03:00 18 97 01/09/19 02:00 18 97 01/09/19 01:00 18 95 01/09/19 00:00 18 97 01/08/19 23:20 37.1 C 81 16 106/68 95 01/08/19 23:00 18 95 01/08/19 22:00 18 97 01/08/19 21:00 18 96 01/08/19 20:20 37 C 84 18 113/73 97 Laboratory Results Laboratory Results - last 24 hr 01/08/19 01/09/19 06:04 06:08 WBC Pending RBC Pending Hgb Pending Hct Pending MCV Pending MCH Pending MCHC Pending Plt Count Pending Blood Type B Positive Antibody Screen NEGATIVE Medications Administered Current Inpatient Medications Benzocaine (Dermoplast Pain Relieving [place]) 1 appln EXT UD PRN PRN Reason: use on skin as needed Stop: 02/07/19 11:33 Cocaine HCl (Supercream 0.870%) 1 gm EXT UD PRN PRN Reason: hemmorrhoidal inflammation Stop: 01/22/19 11:33 Diphenhydramine HCl (Benadryl Capsule) 25 mg PO QID PRN PRN Reason: Itching Stop: 02/07/19 11:33 Diphenhydramine HCl (Benadryl) 25 mg IV QID PRN PRN Reason: Itching Stop: 02/08/19 03:31 Docusate Sodium (Colace) 100 mg PO BID ON LICENSE OF [facility] Stop: 02/07/19 11:33 Last Admin: 01/08/19 20:24 Dose: 100 mg Documented by: Ferrous Sulfate (Feosol) 325 mg PO QAM ON LICENSE OF [facility] Stop: 02/07/19 11:59 Last Admin: 01/08/19 14:34 Dose: Not Given Documented by: Hydrocortisone (Anusol Hc) 25 mg CO BID PRN PRN Reason: Hemorrhoids Stop: 02/07/19 11:33 Lactated Ringer's (Lr) 1,000 mls @ 125 mls/hr IV .Q8H ON LICENSE OF [facility] Stop: 02/07/19 11:33 Last Infusion: 01/09/19 03:30 Dose: 0 mls/hr Documented by: Promethazine HCl 25 mg/ Sodium (Chloride) 51 mls @ 204 mls/hr IV Q4H PRN PRN Reason: Nausea And Vomiting Stop: 02/07/19 11:33 Ibuprofen (Motrin) 600 mg PO Q4H PRN PRN Reason: Pain Stop: 02/07/19 11:33 Ketorolac Tromethamine (Toradol) 30 mg IV Q6H PRN PRN Reason: Pain Stop: 01/14/19 03:31 Magnesium Hydroxide (Milk Of Magnesia) 30 ml PO HS PRN PRN Reason: Constipation Stop: 02/07/19 11:33 Meperidine HCl (Demerol) 50 - 75 mg IV Q4H PRN PRN Reason: Pain Stop: 01/23/19 03:31 Ondansetron HCl (Zofran) 4 mg IV Q4H PRN PRN Reason: Nausea And Vomiting Stop: 02/07/19 11:33 Oxycodone/Acetaminophen (Percocet 5mg/325mg) 1 - 2 tab PO Q4H PRN PRN Reason: Pain Stop: 01/23/19 03:31 Prenat Multivit/[place]/Iron/Folic Ac ( Vitamin) 1 tab PO QAM ON LICENSE OF [facility] Stop: 02/07/19 11:33 Last Admin: 01/08/19 11:51 Dose: Not Given Documented by: Sennosides (Senokot) 17.2 mg PO HS PRN PRN Reason: Constipation Stop: 02/07/19 11:33 Simethicone (Mylicon) 80 mg PO QID ON LICENSE OF [facility] Stop: 02/07/19 11:33 Last Admin: 01/08/19 20:23 Dose: 80 mg Documented by: <Sejal Faulkner MD, FACOG - Last Filed: 01/09/19 06:58> Co-Signing Physician Notes Resident Physician Supervision Note: I interviewed and examined the patient. Discussed with Dr. Damon and agree with findings and plan as documented in the note. Any exceptions or clarifications are listed here: [None] Documented By: Sejal Faulkner MD, FACOG Resident Activity Tracking <Ezio Sanchez DO - Last Filed: 01/09/19 06:54> Resident Involvement: Resident Care Provided Care Provided: OB Delivery
--- NOTE | 2019-01-09 07:43 | Anesthesiology Progress Note ---
Date of Service January 09, 2019 Patient is s/p on 01/08/2019 w/SAB.Patient has been up and ambulating w/o incident. No c/o H/A,LBP or LE weakness. Pt. is satisfied w/ anesthetic care. Physical Exam Vital Signs: Last Vital Signs Temp 36.8 C 01/09/19 03:30 Pulse 87 01/09/19 03:30 Resp 18 01/09/19 03:30 BP 117/78 01/09/19 03:30 Pulse Ox 97 01/09/19 03:00 Results & Data Medications Administered Docusate Sodium (Colace) 100 mg PO BID [facility] Stop: 02/07/19 11:33 Last Admin: 01/08/19 20:24 Dose: 100 mg Documented by: [id number] Admin: 01/08/19 11:50 Dose: Not Given Documented by: [id number] Ferrous Sulfate (Feosol) 325 mg PO QAM [facility] Stop: 02/07/19 11:59 Last Admin: 01/08/19 14:34 Dose: Not Given Documented by: [id number] Lactated Ringer's (Lr) 1,000 mls @ 125 mls/hr IV .Q8H [facility] Stop: 02/07/19 11:33 Last Infusion: 01/09/19 03:30 Dose: 0 mls/hr Documented by: [id number] Admin: 01/08/19 23:00 Dose: 125 mls/hr Documented by: [id number] Admin: 01/08/19 22:59 Dose: Not Given Documented by: [id number] Prenat Multivit/[place]/Iron/Folic Ac ( Vitamin) 1 tab PO QAM [facility] Stop: 02/07/19 11:33 Last Admin: 01/08/19 11:51 Dose: Not Given Documented by: [id number] Simethicone (Mylicon) 80 mg PO QID [facility] Stop: 02/07/19 11:33 Last Admin: 01/08/19 20:23 Dose: 80 mg Documented by: [id number] Admin: 01/08/19 17:24 Dose: 80 mg Documented by: [id number] Admin: 01/08/19 14:34 Dose: Not Given Documented by: [id number] Admin: 01/08/19 11:51 Dose: Not Given Documented by: [id number]
[2019-01-09] MEDS: FERROUS SULFATE 325 MG TAB PO SCH (08:52)
[2019-01-09] MEDS: SIMETHICONE 80 MG CHEW PO SCH ×2 (08:52→12:27)
[2019-01-09] MEDS: PRENATAL VITAMIN 1 TAB PO SCH (08:52)
[2019-01-09] MEDS: DOCUSATE SODIUM 100 MG CAP PO SCH (08:53)
[2019-01-09] MEDS: IBUPROFEN 600 MG TAB PO PRN ×2 (08:55→12:26)
[2019-01-09] MEDS ORDERED: ACETAMINOPHEN 325 MG TAB PO PRN (14:21)
--- NOTE | 2019-01-10 10:49 | Discharge Summary ---
Date of Service January 10, 2019 Discharge Data Consultations 01/08/19 05:39 Consult Anesthesiology Stat Procedures Performed Operation Date: 01/08/19 07:30 Actual Procedures p Section with - Ginger Johnson MD s Bilateral Tubal Ligation(Bilateral) - Ginger Johnson MD Hospital Course (1) History of delivery: Patient admitted and underwent planned repeat section as well as tubal ligation. She had an uncomplicated surgery. Her course was normal, and the patient requested discharge early; she was discharged to home on POD1 by Dr. Faulkner.
== END 2019-01-09 16:45 | disposition home or self-care (01) | DRG 785 ==
LOC: 4S1 05:39 → EDSTATUS 07:30 → 4S2 12:20
PROC: M.PPTLD (2019-01-08 07:30)
DX: O99.214 Obesity complicating childbirth; Z37.0 Single live birth; E66.9 Obesity, unspecified; Z87.42 Personal history of other diseases of the female genital tract; Z30.2 Encounter for sterilization; Z3A.39 39 weeks gestation of pregnancy; O34.211 Maternal care for low transverse scar from previous cesarean delivery